=== PATIENT | male | born 1965 | race Two or more races ===

== ENCOUNTER 2022-12-04 14:44 | Emergency (ER) | payer MEDICAID, SELFPAY ==
--- NOTE | ~2022-12-04 | CT_ITS ---
EXAMINATION: CT ABDOMEN AND PELVIS WITH CONTRAST CLINICAL INFORMATION: Abdominal pain and distention. COMPARISON: None TECHNIQUE: Multidetector volumetric images were obtained from the superior aspect of the liver through the pubic symphysis following administration 85 mL of Omnipaque 350 intravenous contrast. Sagittal and coronal reformatted images were obtained on the technologist's workstation. Oral contrast: No This CT examination was performed using dose optimization techniques as appropriate, variously including the following: *Automated exposure control *Adjustment of mA and/or kV according to patient size (this includes techniques or standardized protocols for targeted exams where dose is matched to indication/reason for exam; i.e. extremities or head) *Use of iterative reconstruction technique DLP: 613 mGy-cm FINDINGS: LUNG BASES: The visualized lung bases are unremarkable. LIVER, GALLBLADDER, AND BILIARY TREE: The liver is normal in size, shape, and attenuation. No focal hepatic lesion or intrahepatic biliary ductal dilatation is present. CBD is slightly prominent measuring 8 mm. The gallbladder is unremarkable with no evidence of radiopaque gallstones, gallbladder wall thickening, or obvious pericholecystic inflammatory changes. PANCREAS: Unremarkable. SPLEEN: Unremarkable. ADRENAL GLANDS: Unremarkable. KIDNEYS AND URETERS: The kidneys are normal size, lobulated. No radiopaque renal calculi or hydronephrosis seen. There is a punctate radiopaque 2 mm calcification or calculi in upper pole left kidney. No hydroureteronephrosis seen. BLADDER: The bladder is mildly distended without any bladder wall thickening or radiopaque calculi.. GASTROINTESTINAL TRACT: There is diffuse scattered stool, diverticuli and gas seen throughout the colon without distention. The diverticulitis are most prominent in the sigmoid colon with mild mural thickening but no pericolic fat stranding seen Oral contrast opacified small bowel loops are normal caliber. Appendix is normal caliber. The stomach is nondistended. ABDOMINAL WALL: Small umbilical hernia containing fat is noted. LYMPH NODES: No abnormal pelvic or retroperitoneal lymph nodes seen. 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 The aneurysm measures 2.7 x 2.8 cm. Patent lumen measures 1.6 x 1.9 cm on axial image 33/3. PELVIC VISCERA: The prostate gland is mildly enlarged. Postsurgical changes are seen in the left groin from previous intervention.. OSSEOUS STRUCTURES: Aggressive lytic or sclerotic process seen. There is a hardware in the left proximal femur. CT/CT abdomen pelvis w IV con . IMPRESSION: Diffuse colonic diverticulosis most prominent in the sigmoid region with mild mural thickening but no pericolic fat stranding. No obstruction. Moderate constipation. Bilateral lobulated kidneys with 2 mm punctate radiopaque calculi/calcification in upper pole left kidney. No hydroureteronephrosis. Fleischner guidelines were followed.
--- NOTE | 2022-12-04 15:01 | ED_ITS ---
HPI - Abdominal Pain General Chief Complaint: Abdominal Pain Stated Complaint: abdominal, back pain Time Seen by Provider: 12/04/22 15:05 Related Data Previous Rx's Medication Instructions Recorded omeprazole 20 mg capsule,delayed 20 mg PO BID #60 caps 12/04/22 release Allergies Allergy/AdvReac Type Severity Reaction Status Date / Time No Known Allergies Allergy Verified 12/04/22 15:01 [facility] Social History Social History Advance Directives: No Advance Directives Information Provided: No Physical Exam ED Vital Signs: BMI result Body Mass Index 26.4 Course Course Course Narrative: RME 57yoM c PMHx of lymphoma, autoimmune pancreatitis, liver disease who is presenting to the ED c c/o diffuse abd pain radiating to back and lower left side. Denies any fevers, nausea/vomiting. Plan: Labs, UA, COVID/RSV/flu swab. Patient will be sent back to the emergency department for further evaluation treatment. Medical Decision Making Lab Data 12/04/22 16:07 12/04/22 16:07 Labs: Lab Results 12/04/22 12/04/22 12/04/22 Range/Units 16:07 16:07 16:07 WBC 7.8 (4.8-10.8) X10*3/uL RBC 5.21 (4.60-5.80) X10*6/uL Hgb 15.8 (14.0-18.0) g/dl Hct 46.3 (42.0-52.0) % MCV 88.9 (80.0-98.0) fL MCH 30.3 (27.0-33.0) pg MCHC 34.1 (31.0-36.0) g/dl RDW 13.1 (11.0-16.0) % Plt Count 170 (160-400) X10*3/uL MPV 9.2 L (9.4-12.4) fL Immature Gran % (Auto) 0.3 (0.0-0.4) % Neut % (Auto) 62.8 (45-73) % Lymph % (Auto) 22.8 (20-40) % Lanier % (Auto) 5.7 (2-11) % Eos % (Auto) 7.5 H (0-4) % Baso % (Auto) 0.9 (0-2) % Lymph # (Auto) 1.8 (1.2-4.9) X10*3/uL Lanier # (Auto) 0.5 (0.1-1.2) X10*3/uL Eos # (Auto) 0.6 H (0.0-0.4) X10*3/uL Baso # (Auto) 0.1 (0.0-0.2) X10*3/uL Abs Immat Gran (auto) 0.02 (0.00-0.03) X10*3/uL Absolute Neuts (auto) 4.9 (2.0-8.3) x10*3/uL Absolute Nucleated RBC 0.000 (0.0-0.012) X10*3/uL Nucleated RBC % (auto) 0.0 (0.0-0.2) /100WBC PT 11.0 (10.0-13.1) SEC INR 1.0 (0.9-1.1) Sodium 139 (135-145) mmol/L Potassium 3.7 (3.3-5.1) mmol/L Chloride 106 (96-108) mmol/L Carbon Dioxide 24 (22-29) mmol/L Anion Gap 13 (12-20) BUN 21 H (9-16) mg/dL Creatinine 1.38 (0.5-1.4) mg/dL Estim Creat Clear Calc 65.1 Estimated GFR 53 Random Glucose 207 H (60-115) mg/dL Calcium 9.6 (8.4-10.2) mg/dL Magnesium 1.7 (1.6-2.6) mg/dL Total Bilirubin 0.6 (0.0-1.0) mg/dL AST 20 (5-37) U/L ALT 23 (0-40) U/L Alkaline Phosphatase 133 H (39-117) U/L Ammonia (13-55) umol/L Total Protein 7.0 (6.5-8.0) g/dL Albumin 4.2 (3.5-5.0) g/dL Lipase 10 (8-78) U/L TSH (0.32-4.0) uIU/mL Ethyl Alcohol mg/dL Influenza Type A (PCR) (Negative) Influenza Type B (PCR) (Negative) RSV RNA Qual (PCR) (Negative) SARS-CoV-2 RNA (RT-PCR) (Negative) 12/04/22 12/04/22 12/04/22 Range/Units 16:07 16:07 16:07 WBC (4.8-10.8) X10*3/uL RBC (4.60-5.80) X10*6/uL Hgb (14.0-18.0) g/dl Hct (42.0-52.0) % MCV (80.0-98.0) fL MCH (27.0-33.0) pg MCHC (31.0-36.0) g/dl RDW (11.0-16.0) % Plt Count (160-400) X10*3/uL MPV (9.4-12.4) fL Immature Gran % (Auto) (0.0-0.4) % Neut % (Auto) (45-73) % Lymph % (Auto) (20-40) % Lanier % (Auto) (2-11) % Eos % (Auto) (0-4) % Baso % (Auto) (0-2) % Lymph # (Auto) (1.2-4.9) X10*3/uL Lanier # (Auto) (0.1-1.2) X10*3/uL Eos # (Auto) (0.0-0.4) X10*3/uL Baso # (Auto) (0.0-0.2) X10*3/uL Abs Immat Gran (auto) (0.00-0.03) X10*3/uL Absolute Neuts (auto) (2.0-8.3) x10*3/uL Absolute Nucleated RBC (0.0-0.012) X10*3/uL Nucleated RBC % (auto) (0.0-0.2) /100WBC PT (10.0-13.1) SEC INR (0.9-1.1) Sodium (135-145) mmol/L Potassium (3.3-5.1) mmol/L Chloride (96-108) mmol/L Carbon Dioxide (22-29) mmol/L Anion Gap (12-20) BUN (9-16) mg/dL Creatinine (0.5-1.4) mg/dL Estim Creat Clear Calc Estimated GFR Random Glucose (60-115) mg/dL Calcium (8.4-10.2) mg/dL Magnesium (1.6-2.6) mg/dL Total Bilirubin (0.0-1.0) mg/dL AST (5-37) U/L ALT (0-40) U/L Alkaline Phosphatase (39-117) U/L Ammonia 41 (13-55) umol/L Total Protein (6.5-8.0) g/dL Albumin (3.5-5.0) g/dL Lipase (8-78) U/L TSH (0.32-4.0) uIU/mL Ethyl Alcohol < 10 mg/dL Influenza Type A (PCR) NEGATIVE (Negative) Influenza Type B (PCR) NEGATIVE (Negative) RSV RNA Qual (PCR) NEGATIVE (Negative) SARS-CoV-2 RNA (RT-PCR) NEGATIVE (Negative) 12/04/22 Range/Units 16:07 WBC (4.8-10.8) X10*3/uL RBC (4.60-5.80) X10*6/uL Hgb (14.0-18.0) g/dl Hct (42.0-52.0) % MCV (80.0-98.0) fL MCH (27.0-33.0) pg MCHC (31.0-36.0) g/dl RDW (11.0-16.0) % Plt Count (160-400) X10*3/uL MPV (9.4-12.4) fL Immature Gran % (Auto) (0.0-0.4) % Neut % (Auto) (45-73) % Lymph % (Auto) (20-40) % Lanier % (Auto) (2-11) % Eos % (Auto) (0-4) % Baso % (Auto) (0-2) % Lymph # (Auto) (1.2-4.9) X10*3/uL Lanier # (Auto) (0.1-1.2) X10*3/uL Eos # (Auto) (0.0-0.4) X10*3/uL Baso # (Auto) (0.0-0.2) X10*3/uL Abs Immat Gran (auto) (0.00-0.03) X10*3/uL Absolute Neuts (auto) (2.0-8.3) x10*3/uL Absolute Nucleated RBC (0.0-0.012) X10*3/uL Nucleated RBC % (auto) (0.0-0.2) /100WBC PT (10.0-13.1) SEC INR (0.9-1.1) Sodium (135-145) mmol/L Potassium (3.3-5.1) mmol/L Chloride (96-108) mmol/L Carbon Dioxide (22-29) mmol/L Anion Gap (12-20) BUN (9-16) mg/dL Creatinine (0.5-1.4) mg/dL Estim Creat Clear Calc Estimated GFR Random Glucose (60-115) mg/dL Calcium (8.4-10.2) mg/dL Magnesium (1.6-2.6) mg/dL Total Bilirubin (0.0-1.0) mg/dL AST (5-37) U/L ALT (0-40) U/L Alkaline Phosphatase (39-117) U/L Ammonia (13-55) umol/L Total Protein (6.5-8.0) g/dL Albumin (3.5-5.0) g/dL Lipase (8-78) U/L TSH 0.87 (0.32-4.0) uIU/mL Ethyl Alcohol mg/dL Influenza Type A (PCR) (Negative) Influenza Type B (PCR) (Negative) RSV RNA Qual (PCR) (Negative) SARS-CoV-2 RNA (RT-PCR) (Negative) Medications Administered Discontinued Medications Generic Name Dose Route Start Last Admin Trade Name Freq PRN Reason Stop Dose Admin Diatrizoate Meglum/Diatrizoate Sod 30 ml 12/04/22 17:58 12/04/22 17:58 Diatrizoate Meglumine, Sodium 30 Ml Solution PO 12/04/22 17:59 30 ml ONCE ONE Administration Sodium Chloride 500 mls @ 500 mls/hr 12/04/22 15:30 12/04/22 17:29 Ns IV 12/04/22 16:29 Infused .Q1H CHIP Infusion Iohexol 100 ml 12/04/22 17:57 12/04/22 17:58 Iohexol 350 Mg/Ml 100 Ml Infus..Btl IV 12/04/22 17:58 85 ml ONCE ONE Administration Discharge Plan Discharge Clinical Impression: Gastritis Patient Disposition: Home, Self-Care Instructions: Gastritis (ED) Additional Instructions: Follow-up with your cost accounting analyst as scheduled Prescriptions: New omeprazole 20 mg capsule,delayed release(DR/EC) 20 mg PO BID Qty: 60 0RF Interventions: ED Discharge Assessment Last Done: 12/04/22 19:39 Discharge Date/Time: 12/04/22 19:40
[2022-12-04 15:02] VITALS: BP 127/72; PULSE 83; RESP 18; TEMP 36.5; O2SAT 100; BMI 26.4
--- NOTE | 2022-12-04 15:26 | ED.ABDPAIN ---
HPI - Abdominal Pain General Chief Complaint: Abdominal Pain Stated Complaint: abdominal, back pain Time Seen by Provider: 12/04/22 15:05 Source: patient Limitations: no limitations History of Present Illness HPI narrative: Chief complaint abdominal pain for 1 month. Patient states he has been having abdominal discomfort and bloating for the past 1 month, getting worse over the past 1 week. He has a history significant for autoimmune pancreatitis and hepatitis for which he used to have infusions twice a year at [facility] in [facility]. His last infusion was approximately 1 year ago. He states the workup at the time was negative so they stopped his infusions. He does not have a local PCP or specialist as he still does some work in [place] in follows up with his doctors there. This is the 1st time he has had symptoms like this since his initial diagnosis multiple years ago. No nausea or vomiting. He has had no diarrhea or constipation but does report a change in bowel movements and then now they are cream-colored for the past month. History of surgery on his kidneys for cysts. No other abdominal surgeries. His gallbladder is in as is his appendix. No recent fevers or chills. No respiratory symptoms. Related Data Previous Rx's Medication Instructions Recorded omeprazole 20 mg capsule,delayed 20 mg PO BID #60 caps 12/04/22 release Allergies Allergy/AdvReac Type Severity Reaction Status Date / Time No Known Allergies Allergy Verified 12/04/22 15:01 Review of Systems Comments: No fevers or chills Comments: No chest pain Comments: No cough or dyspnea Comments: Abdominal symptoms as described Comments: No urinary symptoms Comments: No change in skin color. No jaundice Comments: No focal weakness PMFSH Social History Social History Advance Directives: No Advance Directives Information Provided: No Physical Exam ED Vital Signs: Vital Signs - 24 hr 12/04/22 15:02 Temperature 97.7 F Pulse Rate 83 Respiratory Rate 18 Blood Pressure 127/72 Pulse Oximetry 100 Oxygen Delivery Method Room Air BMI result Body Mass Index 26.4 Const Other: Awake alert. No acute distress. Ambulatory without difficulty. Eyes Other: No scleral icterus Resp Other: Clear equal bilaterally without wheezes rales or rhonchi Cardio Other: Regular rate and rhythm without murmurs rubs or gallops GI Other: Soft. Tenderness epigastrium. No guarding no rebound. Distended diffusely. No obvious fluid with. Tympanitic bowel sounds. Skin Other: Warm pink and dry without jaundice Neuro Other: Ambulatory. No obvious focal neuro deficits Extrem Other: No obvious extremity injuries Medical Decision Making Medical Decision Making MDM Narrative: Patient with gradually progressive abdominal symptoms including distension and change in stool color. Specially in light of history of autoimmune pancreatic and hepatic involvement, the differential is quite extensive. Biliary obstruction is possible although he is not jaundiced. Pancreatitis Bowel obstruction Colitis Gastritis Peptic ulcer disease 19:19. Workup in the emergency department is reassuring. CBC and chemistries are normal. Transaminases and lipase are also normal. CT scan shows diverticulosis without evidence of diverticulitis or any other acute abnormality that would be causing the patient's symptoms. He is stable for discharge home with a final diagnosis of abdominal pain. Likely gastritis. Will treat with proton pump inhibitor. Lab Data 12/04/22 16:07 12/04/22 16:07 Labs: Lab Results 12/04/22 12/04/22 12/04/22 Range/Units 16:07 16:07 16:07 WBC 7.8 (4.8-10.8) X10*3/uL RBC 5.21 (4.60-5.80) X10*6/uL Hgb 15.8 (14.0-18.0) g/dl Hct 46.3 (42.0-52.0) % MCV 88.9 (80.0-98.0) fL MCH 30.3 (27.0-33.0) pg MCHC 34.1 (31.0-36.0) g/dl RDW 13.1 (11.0-16.0) % Plt Count 170 (160-400) X10*3/uL MPV 9.2 L (9.4-12.4) fL Immature Gran % (Auto) 0.3 (0.0-0.4) % Neut % (Auto) 62.8 (45-73) % Lymph % (Auto) 22.8 (20-40) % Coles % (Auto) 5.7 (2-11) % Eos % (Auto) 7.5 H (0-4) % Baso % (Auto) 0.9 (0-2) % Lymph # (Auto) 1.8 (1.2-4.9) X10*3/uL Coles # (Auto) 0.5 (0.1-1.2) X10*3/uL Eos # (Auto) 0.6 H (0.0-0.4) X10*3/uL Baso # (Auto) 0.1 (0.0-0.2) X10*3/uL Abs Immat Gran (auto) 0.02 (0.00-0.03) X10*3/uL Absolute Neuts (auto) 4.9 (2.0-8.3) x10*3/uL Absolute Nucleated RBC 0.000 (0.0-0.012) X10*3/uL Nucleated RBC % (auto) 0.0 (0.0-0.2) /100WBC PT 11.0 (10.0-13.1) SEC INR 1.0 (0.9-1.1) Sodium 139 (135-145) mmol/L Potassium 3.7 (3.3-5.1) mmol/L Chloride 106 (96-108) mmol/L Carbon Dioxide 24 (22-29) mmol/L Anion Gap 13 (12-20) BUN 21 H (9-16) mg/dL Creatinine 1.38 (0.5-1.4) mg/dL Estim Creat Clear Calc 65.1 Estimated GFR 53 Random Glucose 207 H (60-115) mg/dL Calcium 9.6 (8.4-10.2) mg/dL Magnesium 1.7 (1.6-2.6) mg/dL Total Bilirubin 0.6 (0.0-1.0) mg/dL AST 20 (5-37) U/L ALT 23 (0-40) U/L Alkaline Phosphatase 133 H (39-117) U/L Ammonia (13-55) umol/L Total Protein 7.0 (6.5-8.0) g/dL Albumin 4.2 (3.5-5.0) g/dL Lipase 10 (8-78) U/L TSH (0.32-4.0) uIU/mL Ethyl Alcohol mg/dL Influenza Type A (PCR) (Negative) Influenza Type B (PCR) (Negative) RSV RNA Qual (PCR) (Negative) SARS-CoV-2 RNA (RT-PCR) (Negative) 12/04/22 12/04/22 12/04/22 Range/Units 16:07 16:07 16:07 WBC (4.8-10.8) X10*3/uL RBC (4.60-5.80) X10*6/uL Hgb (14.0-18.0) g/dl Hct (42.0-52.0) % MCV (80.0-98.0) fL MCH (27.0-33.0) pg MCHC (31.0-36.0) g/dl RDW (11.0-16.0) % Plt Count (160-400) X10*3/uL MPV (9.4-12.4) fL Immature Gran % (Auto) (0.0-0.4) % Neut % (Auto) (45-73) % Lymph % (Auto) (20-40) % Coles % (Auto) (2-11) % Eos % (Auto) (0-4) % Baso % (Auto) (0-2) % Lymph # (Auto) (1.2-4.9) X10*3/uL Coles # (Auto) (0.1-1.2) X10*3/uL Eos # (Auto) (0.0-0.4) X10*3/uL Baso # (Auto) (0.0-0.2) X10*3/uL Abs Immat Gran (auto) (0.00-0.03) X10*3/uL Absolute Neuts (auto) (2.0-8.3) x10*3/uL Absolute Nucleated RBC (0.0-0.012) X10*3/uL Nucleated RBC % (auto) (0.0-0.2) /100WBC PT (10.0-13.1) SEC INR (0.9-1.1) Sodium (135-145) mmol/L Potassium (3.3-5.1) mmol/L Chloride (96-108) mmol/L Carbon Dioxide (22-29) mmol/L Anion Gap (12-20) BUN (9-16) mg/dL Creatinine (0.5-1.4) mg/dL Estim Creat Clear Calc Estimated GFR Random Glucose (60-115) mg/dL Calcium (8.4-10.2) mg/dL Magnesium (1.6-2.6) mg/dL Total Bilirubin (0.0-1.0) mg/dL AST (5-37) U/L ALT (0-40) U/L Alkaline Phosphatase (39-117) U/L Ammonia 41 (13-55) umol/L Total Protein (6.5-8.0) g/dL Albumin (3.5-5.0) g/dL Lipase (8-78) U/L TSH (0.32-4.0) uIU/mL Ethyl Alcohol < 10 mg/dL Influenza Type A (PCR) NEGATIVE (Negative) Influenza Type B (PCR) NEGATIVE (Negative) RSV RNA Qual (PCR) NEGATIVE (Negative) SARS-CoV-2 RNA (RT-PCR) NEGATIVE (Negative) 12/04/22 Range/Units 16:07 WBC (4.8-10.8) X10*3/uL RBC (4.60-5.80) X10*6/uL Hgb (14.0-18.0) g/dl Hct (42.0-52.0) % MCV (80.0-98.0) fL MCH (27.0-33.0) pg MCHC (31.0-36.0) g/dl RDW (11.0-16.0) % Plt Count (160-400) X10*3/uL MPV (9.4-12.4) fL Immature Gran % (Auto) (0.0-0.4) % Neut % (Auto) (45-73) % Lymph % (Auto) (20-40) % Coles % (Auto) (2-11) % Eos % (Auto) (0-4) % Baso % (Auto) (0-2) % Lymph # (Auto) (1.2-4.9) X10*3/uL Coles # (Auto) (0.1-1.2) X10*3/uL Eos # (Auto) (0.0-0.4) X10*3/uL Baso # (Auto) (0.0-0.2) X10*3/uL Abs Immat Gran (auto) (0.00-0.03) X10*3/uL Absolute Neuts (auto) (2.0-8.3) x10*3/uL Absolute Nucleated RBC (0.0-0.012) X10*3/uL Nucleated RBC % (auto) (0.0-0.2) /100WBC PT (10.0-13.1) SEC INR (0.9-1.1) Sodium (135-145) mmol/L Potassium (3.3-5.1) mmol/L Chloride (96-108) mmol/L Carbon Dioxide (22-29) mmol/L Anion Gap (12-20) BUN (9-16) mg/dL Creatinine (0.5-1.4) mg/dL Estim Creat Clear Calc Estimated GFR Random Glucose (60-115) mg/dL Calcium (8.4-10.2) mg/dL Magnesium (1.6-2.6) mg/dL Total Bilirubin (0.0-1.0) mg/dL AST (5-37) U/L ALT (0-40) U/L Alkaline Phosphatase (39-117) U/L Ammonia (13-55) umol/L Total Protein (6.5-8.0) g/dL Albumin (3.5-5.0) g/dL Lipase (8-78) U/L TSH 0.87 (0.32-4.0) uIU/mL Ethyl Alcohol mg/dL Influenza Type A (PCR) (Negative) Influenza Type B (PCR) (Negative) RSV RNA Qual (PCR) (Negative) SARS-CoV-2 RNA (RT-PCR) (Negative) Medications Administered Discontinued Medications Generic Name Dose Route Start Last Admin Trade Name Freq PRN Reason Stop Dose Admin Diatrizoate Meglum/Diatrizoate Sod 30 ml 12/04/22 17:58 12/04/22 17:58 Diatrizoate Meglumine, Sodium 30 Ml Solution PO 12/04/22 17:59 30 ml ONCE ONE Administration Sodium Chloride 500 mls @ 500 mls/hr 12/04/22 15:30 12/04/22 17:29 Ns IV 12/04/22 16:29 Infused .Q1H CHIP Infusion Iohexol 100 ml 12/04/22 17:57 12/04/22 17:58 Iohexol 350 Mg/Ml 100 Ml Infus..Btl IV 12/04/22 17:58 85 ml ONCE ONE Administration Discharge Plan Discharge Clinical Impression: Gastritis Patient Disposition: Home, Self-Care Instructions: Gastritis (ED) Additional Instructions: Follow-up with your antisqueak chalker as scheduled Prescriptions: New omeprazole 20 mg capsule,delayed release(DR/EC) 20 mg PO BID Qty: 60 0RF
[2022-12-04 16:19] LABS: MANUAL DIFF FLAG NO
[2022-12-04 16:21] LABS: Basophils Absolute Auto 0.1 X10*3/uL (0.0-0.2); Basophils Percent Auto 0.9 % (0-2); Eosinophils Absolute Auto 0.6 X10*3/uL (0.0-0.4); Eosinophils Percent Auto 7.5 % (0-4); Hematocrit 46.3 % (42.0-52.0); Hemoglobin 15.8 g/dl (14.0-18.0); Imm Gran Abs Auto 0.02 X10*3/uL (0.00-0.03); Imm Gran Pct Auto 0.3 % (0.0-0.4); Lymphocytes Absolute Auto 1.8 X10*3/uL (1.2-4.9); Lymphocytes Percent Auto 22.8 % (20-40); Mean Corpuscular HGB Conc 34.1 g/dl (31.0-36.0); Mean Corpuscular Hemoglobin 30.3 pg (27.0-33.0); Mean Corpuscular Volume 88.9 fL (80.0-98.0); Mean Platelet Volume 9.2 fL (9.4-12.4); Monocytes Absolute Auto 0.5 X10*3/uL (0.1-1.2); Monocytes Percent Auto 5.7 % (2-11); Neutrophils Absolute Auto 4.9 x10*3/uL (2.0-8.3); Neutrophils Percent Auto 62.8 % (45-73); Platelet Count 170 X10*3/uL (160-400); Red Blood Count 5.21 X10*6/uL (4.60-5.80); Red Cell Distribution Width 13.1 % (11.0-16.0); White Blood Count 7.8 X10*3/uL (4.8-10.8)
[2022-12-04 16:28] LABS: Ammonia 41 umol/L (13-55)
[2022-12-04] MEDS: 0.9 % Sodium Chloride 500 ML IV (16:29)
[2022-12-04 16:34] LABS: Ethanol < 10 mg/dL
[2022-12-04 16:36] LABS: Alanine Aminotransferase 23 U/L (0-40); Albumin Level 4.2 g/dL (3.5-5.0); Alkaline Phosphatase 133 U/L (39-117); Anion Gap 13 (12-20); Aspartate Amino Transferase 20 U/L (5-37); Bilirubin Total 0.6 mg/dL (0.0-1.0); Blood Urea Nitrogen 21 mg/dL (9-16); Calcium 9.6 mg/dL (8.4-10.2); Carbon Dioxide 24 mmol/L (22-29); Chloride 106 mmol/L (96-108); Creatinine Clr Calc Pharmacy 65.1; Estimated Glomerular Filt Rate 53; Glucose Random 207 mg/dL (60-115); Lipase 10 U/L (8-78); Magnesium 1.7 mg/dL (1.6-2.6); Potassium 3.7 mmol/L (3.3-5.1); Sodium 139 mmol/L (135-145)
[2022-12-04 16:57] LABS: TSH reflex Free T4 0.87 uIU/mL (0.32-4.0)
[2022-12-04 16:58] LABS: Influenza A PCR NEGATIVE (Negative); Influenza B PCR NEGATIVE (Negative); Resp Syncy Virus RNA Qual PCR NEGATIVE (Negative); SARS COV2 PCR INHOUSE NEGATIVE (Negative)
[2022-12-04] MEDS: iohexoL 350 MG/ML 100 ML INFUS..BTL IV (17:58)
[2022-12-04] MEDS: Diatrizoate Meglumine, Sodium 30 ML SOLUTION PO (17:58)
== END 2022-12-04 19:40 | disposition home or self-care (01) ==
PROVIDERS: Physician Assistant Medical; Emergency Provider Emergency Medicine
DX: K29.70 Gastritis, unspecified, without bleeding (principal); R10.9 Unspecified abdominal pain; Z20.822 Contact with and (suspected) exposure to COVID-19; Z20.828 Contact with and (suspected) exposure to other viral communicable diseases
CPT/HCPCS: 0241U; 36415; 74177; 80053; 82077; 82140; 83690; 83735; 84443; 85025; 85610; 96360; 99283; 99284; Q9967

== ENCOUNTER 2023-01-03 14:41 | Outpatient (REF) | payer MEDICAID, SELFPAY ==
[2023-01-03 15:36] LABS: COVID-19 Test Negative (Negative); IDNOW Serial# 9DB6401D
== END 2023-01-03 14:42 | disposition home or self-care (01) ==
LOC: HO.LAB 14:41
PROVIDERS: Visit Provider Internal Medicine
DX: Z20.822 Contact with and (suspected) exposure to COVID-19 (principal)
CPT/HCPCS: 87635; C9803

== ENCOUNTER 2023-08-06 17:54 | Emergency (ER) | payer MEDICAID, SELFPAY ==
[2023-08-06 18:11] VITALS: BP 130/73; PULSE 66; RESP 18; TEMP 37.1; O2SAT 99; BMI 26.4
--- NOTE | 2023-08-06 18:11 | ED.EYEPROB ---
HPI - Eye Problem General Chief complaint: Eye Problems Stated complaint: right eye swollen Time Seen by Provider: 08/06/23 19:11 Source: patient Mode of arrival: ambulatory Limitations: no limitations History of Present Illness HPI Narrative: 58 year old male with no significant PMHx presents to the ED today with right eye pain after cutting plywood with a saw 2 hours ago. Admits to wearing protective eye gear and believes a piece of wood flew into his right eye. He has attempted to remove the piece of wood with eye wash and a cotton swab however still reports discomfort and FB sensation. Denies vision changes, discharge, tearing, bleeding, or headache. Related Data Previous Rx's Medication Instructions Recorded omeprazole 20 mg capsule,delayed 20 mg PO BID #60 caps 12/04/22 release erythromycin 5 mg/gram (0.5 %) eye 1 appl ophthalmic (eye) QID 7 days 08/06/23 ointment #3.5 grams Allergies Allergy/AdvReac Type Severity Reaction Status Date / Time No Known Allergies Allergy Verified 08/06/23 18:11 Review of Systems Review of Systems: Constitutional: No fever, chills, fatigue, night sweats, weight changes ENT/Mouth: No ear pain, hearing loss, nasal congestion, sinus pain, rhinorrhea, sore throat Eyes: + eye pain, + redness, No swelling, vision changes, discharge Cardio: No chest pain, palpitations, JOVEL, orthopnea, peripheral edema Pulm: No SOB, cough, sputum, wheezing, dyspnea, hemoptysis GI: No nausea, vomiting, hematemesis, abdominal pain, diarrhea, constipation, hematochezia, melena : No irregular bleeding, dysuria, frequency, urgency, hesitancy, hematuria, flank pain, urinary flow changes, urinary incontinence or retention MSK: No back pain, neck pain, joint pain, myalgias Skin: No lesions, rashes Neuro: No weakness, numbness, paresthesias, LOC, dizziness, headache All other systems reviewed and are negative. [facility] Past Medical History Attestation statement: The following information was validated with the patient. Source: old records reviewed and nursing notes reviewed Social History Social History Advance Directives: No Advance Directives Information Provided: No Physical Exam Vital Signs: Vital Signs: Last Vital Signs Temp 98.8 F 08/06/23 18:11 Pulse 66 08/06/23 18:11 Resp 18 08/06/23 18:11 BP 130/73 08/06/23 18:11 Pulse Ox 99 08/06/23 18:11 O2 Del Method Room Air 08/06/23 18:11 BMI result Body Mass Index 26.4 VSS General: Nontoxic appearing. NAD Skin: Warm and dry. No rashes or lesions. Head: Normocephalic, atraumatic. EENT: PERRLA. Right eye with injected conjunctiva, no visible FB, abrasion, or rust ring. EOMs intact b/l without intrapment. Moist mucous membranes. Pharynx normal. Neck: Supple without LAD. Normal ROM. Trachea midline.? Cardiac: RRR. S1 and S1 appreciated. Lungs: CTA b/l. No rales, rhonchi, or wheezes. Normal respiratory effort without accessory muscle use. Abdomen: No visible lesions or scars. Soft, NT/ND. Ext: Upper and lower extremities atraumatic. Full ROM throughout. Capillary refill <2 sec throughout. Pulses 2+ throughout. No edema, cyanosis, or clubbing. Neuro: Alert and oriented x3. Normal speech. CN 2-12 grossly intact. Ambulating with steady gait. Psych: Appropriate mood and affect. Responds appropriately to questions. Course Course Course Narrative: Tetracaine, fluorescein stain, and cotton swab used to evaluate right eye >> no visible fb, rust ring, or stain uptake indicating corneal abrasion noted to the right eye under faith lmap. Eyelid eversion performed >> small sawdust particle removed from the medial aspect of the superior inner eyelid with cotton swab. Will send patient home with rx for erythromicin ointment >> advised to apply to the affected eye 4 times daily to prevent infection. Educated patient on return precautions. All questions answered. Patient stable for d/c. Medications Administered Discontinued Medications Generic Name Dose Route Start Last Admin Trade Name Freq PRN Reason Stop Dose Admin Fluorescein Sodium 1 strip 08/06/23 18:12 08/06/23 19:09 Fluorescein Sodium Strip EYE-RIGHT 08/06/23 18:13 1 strip ONCE ONE Administration Tetracaine HCl 3 drop 08/06/23 18:12 08/06/23 19:09 Tetracaine Hcl/Pf 0.5% Oph Adry 4 Ml Drops EYE-RIGHT 08/06/23 18:13 3 drop ONCE ONE Administration Medical Decision Making Medical Decision Making MDM Narrative: 58 year old male with no significant PMHx presents to the ED today with right eye pain after cutting plywood with a saw 2 hours ago. VSS. Nontoxic appearing, in NAD. Right eye with injected conjunctiva, no visible FB, abrasion, or rust ring. EOMs intact b/l without intrapment. Moist mucous membranes. Pharynx normal. Clinical concern for eye FB vs corneal abraision. Presentation not consistent with acute angle closure glaucoma, globe rupture, orbital or preorbital cellulitis. Plan: evaluation with tetracaine, fluorescein stain and faith lamp. Differential Diagnosis Differential Diagnoses: The differential diagnosis associated with the presentation includes As above. Admission/Observation Not indicated. Tests considered The following testing was considered but not selected: I considered ordering CT orbital bones however patient without vision changes and EOM's intact b/l without intrapment > no concern for globe rupture. I considered ordering tonopen evaluation however history/ presentation not consistent with acute angle closure glaucoma + FB identified on physical exam. Prescription Management I considered prescription management with: Pain Medication and Antibiotic Procedures FB Removal Eye Time Out performed: Yes Location: eye (R) Topical anesthetic used: tetracaine Foreign body: wood Evidence of corneal penetration: No Technique: cotton tip swab Procedure performed under: direct visualization with magnification Post-procedure medication: ophthalmic antibiotic and topical anesthetic Patient tolerated procedure: well Critical Care Time Critical Care Time Critical Care Time: No Discharge Plan Discharge Clinical Impression: Corneal abrasion Patient Disposition: Home, Self-Care Instructions: Corneal Abrasion (ED) Additional Instructions: Erythromycin is an antibiotic ointment. This has been sent to your pharmacy. Apply this to your eye 4 times a day to prevent infection. Return to the ED if symptoms persist or worsen. Follow up with PCP. A referral to an eye doctor has been provided to you. Call to make an apopointment. Prescriptions: New erythromycin 5 mg/gram (0.5 %) ointment 1 appl ophthalmic (eye) QID 7 Days Qty: 3.5 0RF No Action omeprazole 20 mg capsule,delayed release(DR/EC) 20 mg PO BID Qty: 60 0RF Referrals: Fernando Younger [Physician] - Physician,Unknown J [Primary Care Provider] - Interventions: ED Discharge Assessment Last Done: 08/06/23 19:37 Discharge Date/Time: 08/06/23 19:37
[2023-08-06] MEDS: Fluorescein Sodium STRIP 1 STRIP EYE-RIGHT (19:09)
[2023-08-06] MEDS: Tetracaine HCl/PF 0.5% Oph Sol 4 ML DROPS 3 DROP EYE-RIGHT (19:09)
== END 2023-08-06 19:37 | disposition home or self-care (01) ==
PROVIDERS: Emergency Provider Internal Medicine
DX: S00.251A Superficial foreign body of right eyelid and periocular area, initial encounter (principal); H57.11 Ocular pain, right eye; T15.01XA Foreign body in cornea, right eye, initial encounter; X58.XXXA Exposure to other specified factors, initial encounter; Y93.9 Activity, unspecified; Y92.9 Unspecified place or not applicable; Y99.9 Unspecified external cause status
CPT/HCPCS: 65220; 99282; 99284

== ENCOUNTER 2023-10-28 17:34 | Inpatient (IN) | payer OTHER, SELFPAY ==
--- NOTE | ~2023-10-28 | XR_ITS ---
EXAMINATION: XR CHEST CLINICAL INFORMATION: Chest pain COMPARISON: None available. TECHNIQUE: Frontal view of the chest was obtained. FINDINGS: No significant abnormality is noted involving the heart, lungs, mediastinum, bony thorax or soft tissues. XR/XR chest 1V IMPRESSION: Unremarkable examination.
--- NOTE | 2023-10-28 17:38 | ECG_ITS ---
Test Reason : CHEST PAIN Blood Pressure : / mmHG Vent. Rate : 065 BPM Atrial Rate : 065 BPM P-R Int : 156 ms QRS Dur : 104 ms QT Int : 386 ms P-R-T Axes : 055 011 050 degrees QTc Int : 401 ms Normal sinus rhythm Normal ECG No previous ECGs available Referred By: Generic ED Physician Electronically Signed By:GRANT BO MD
[2023-10-28 17:51] VITALS: BP 130/87; PULSE 85; O2SAT 98; BMI 26.0
--- NOTE | 2023-10-28 18:00 | PC.NURSE ---
a&ox4, vss and up to date. pt comes in today d/t left sided chest pain. pt states cp radiates to center of chest/into throat. pt also verbalizing numbness/tingling in LUE. sx started 1 hr ago when he was driving. denies any other sx. no sob/wob noted. respirations even/unlabored.
[2023-10-28 18:11] LABS: MANUAL DIFF FLAG NO
--- NOTE | 2023-10-28 18:13 | ED_ITS ---
HPI - Chest Pain General Chief Complaint: Chest Pain Stated Complaint: sudden onset of chest pain 8/10, SOB Time Seen by Provider: 10/28/23 18:02 Source: patient Mode of arrival: EMS Limitations: no limitations History of Present Illness HPI narrative: Patient comes to the emergency room complaining of chest pain. Patient states that 3 days ago, patient had nausea vomiting diarrhea, abdominal discomfort, self-resolved. Today, patient states that approximately 5 hours ago, patient started having sudden onset chest pain and left arm tingling. Patient was given full-dose aspirin by EMS, patient had 2 rounds of nitroglycerin. Patient states that the pain was initially 8/10, after the 2nd dose of nitroglycerin, the pain started to decrease. At this time, patient states that he feels fairly comfortable, no significant chest pain but still his left arm is tingling Related Data Previous Rx's Medication Instructions Recorded omeprazole 20 mg capsule,delayed 20 mg PO BID #60 caps 12/04/22 release erythromycin 5 mg/gram (0.5 %) eye 1 appl ophthalmic (eye) QID 7 days 08/06/23 ointment #3.5 grams Allergies Allergy/AdvReac Type Severity Reaction Status Date / Time No Known Allergies Allergy Verified 10/28/23 17:51 Review of Systems 2 Review of Systems: Constitutional : No Weight loss, No Fever, No Chills, No Night Sweats, No Fatigue, No Malaise ENT/Mouth : No Hearing loss, No Ear Pain, No Nasal Congestion, No Sinus Pain, No Hoarseness, No sore throat, No Rhinorrhea, No Swallowing Difficulty Eyes: No Eye Pain, No Swelling, No Redness, No Foreign Body, No Discharge, No Vision Changes Cardiovascular : Complaining of chest pain on the left radiating towards the left arm with numbness tingling, pain improved after 2nd dose of nitroglycerin and full-dose aspirin No SOB, No Dyspnea on Exertion, No Orthopnea, No Edema, No Palpitations Respiratory : No Cough, No Sputum, No Wheezing, No Smoke Exposure, No Dyspnea Gastrointestinal : No Nausea, No Vomiting, No Diarrhea, No Constipation, No abdominal Pain, No Hematochezia, No Melena Genitourinary : no irregular bleeding, No Dysuria, No Urinary Frequency, No Hematuria, No Urinary Incontinence, No Urgency, No Flank Pain, No Urinary Flow Changes, No Hesitancy Musculoskeletal : No joint pain, No Myalgias, No Joint Swelling Skin : No Skin Lesions, No rash Neuro : No Weakness, No Numbness, No Paresthesias, No Loss of Consciousness, No Dizziness, No Headache Psych : No Anxiety/Panic, No Depression, No SI/HI/AH/VH, No Social Issues, Heme/Lymph: No Bruising, No Bleeding,No Lymphadenopathy Endocrine : No Polyuria, No Polydipsia, No Temperature Intolerance [facility] Past Medical History Medical History (Updated 10/28/23 @ 21:38 by Radhika Bowden MD) IgG deficiency Hypertension Asthma Autoimmune hepatitis Social History Social History Smoked in Last 30 Days: Yes Use of substances other than those prescribed or required for medical reasons: No Advance Directives: No Advance Directives Information Provided: No Physical Exam 2 Vital Signs: Vital Signs: Last Vital Signs Temp 97.9 F 10/28/23 19:09 Pulse 60 10/28/23 19:09 Resp 19 10/28/23 19:09 BP 127/80 10/28/23 19:09 Pulse Ox 98 10/28/23 19:09 O2 Del Method Room Air 10/28/23 19:09 BMI result Body Mass Index 26.0 Const: Other: Appearance: Alert. Oriented X3. No acute distress. Eyes: Pupils equal, round and reactive to light. ENT: Pharynx normal. Neck: Normal inspection. Neck supple. No lymph nodes noted. No crepitus CVS: Normal heart rate and rhythm. Pulses normal. Normal S1 and S2 Respiratory: No respiratory distress. Breath sounds normal. No Wheezing. No rales Abdomen: Soft and nontender. No rigidity. No distention. Skin: Skin warm and dry. Normal skin color. Normal skin turgor. Extremities: No lower extremity edema. No Lacerations. No Rash Neuro: Oriented X 3. No motor deficit. No sensory deficit. Moving all extremities. No slurred speech. CN 2 through 12 grossly intact Psych: calm, cooperative, normal affect Course Course Course Narrative: - Medications Administered Discontinued Medications Generic Name Dose Route Start Last Admin Trade Name Freq PRN Reason Stop Dose Admin Acetaminophen 975 mg 10/28/23 19:09 10/28/23 19:19 Acetaminophen 325 Mg Tablet PO 10/28/23 19:10 975 mg ONCE ONE Administration Medical Decision Making Medical Decision Making [facility] Narrative: -my interpretation of EKG: Normal rate 65, the segment depression or elevation, no T-wave inversion, QTC 401, incomplete right bundle branch block -my interpretation of labs: Hematology within normal limits, chemistry does not show any significant acute abnormality, 1st troponin drawn at 18:05, hemolyzed, 1st actual troponin available 19:50, troponin elevated at 180.6. -patient has been symptomatic for 6 hours with relief after nitroglycerin. However, still having minimal chest pain and left arm tingling. I discussed the patient and the labs and EKGs with Dr. Danielle. We will apply nitroglycerin paste and start heparin. Second troponin 2 at 22:50 -my interpretation of EKG 2: Sinus bradycardia, heart rate 54, no ST segment depression or elevation, no T-wave inversion, QTC 392, incomplete right bundle branch block Differential Diagnosis Differential Diagnoses: The differential diagnosis associated with the presentation includes (STEMI, NSTEMI, ACS, unstable angina, musculoskeletal pain, costochondritis, anxiety) Admission/Observation Consideration of admission/observation: Escalation of care including admission/observation considered Consult Healthcare Provider Management of the patient was discussed with: Hospitalist and Water Conservationist Lab Data MDM Lab Attestation statement: I reviewed the patient's lab results. 10/28/23 18:05 10/28/23 19:50 Labs: Lab Results 10/28/23 10/28/23 Range/Units 18:05 19:50 WBC 8.8 (4.8-10.8) X10*3/uL RBC 4.87 (4.60-5.80) X10*6/uL Hgb 14.7 (14.0-18.0) g/dl Hct 44.2 (42.0-52.0) % MCV 90.8 (80.0-98.0) fL MCH 30.2 (27.0-33.0) pg MCHC 33.3 (31.0-36.0) g/dl RDW 13.2 (11.0-16.0) % Plt Count 170 (160-400) X10*3/uL MPV 9.5 (9.4-12.4) fL Immature Gran % (Auto) 0.2 (0.0-0.4) % Neut % (Auto) 72.9 (45-73) % Lymph % (Auto) 14.7 L (20-40) % [place] % (Auto) 8.6 (2-11) % Eos % (Auto) 3.0 (0-4) % Baso % (Auto) 0.6 (0-2) % Lymph # (Auto) 1.3 (1.2-4.9) X10*3/uL [place] # (Auto) 0.8 (0.1-1.2) X10*3/uL Eos # (Auto) 0.3 (0.0-0.4) X10*3/uL Baso # (Auto) 0.1 (0.0-0.2) X10*3/uL Abs Immat Gran (auto) 0.02 (0.00-0.03) X10*3/uL Absolute Neuts (auto) 6.4 (2.0-8.3) x10*3/uL Absolute Nucleated RBC 0.000 (0.0-0.012) X10*3/uL Nucleated RBC % (auto) 0.0 (0.0-0.2) /100WBC Sodium 142 (135-145) mmol/L Potassium 4.0 (3.3-5.1) mmol/L Chloride 109 H (96-108) mmol/L Carbon Dioxide 24 (22-29) mmol/L Anion Gap 13 (12-20) BUN 19 H (9-16) mg/dL Creatinine 1.15 (0.5-1.4) mg/dL Estim Creat Clear Calc 77.1 Estimated GFR > 60 Random Glucose 127 H (60-115) mg/dL Calcium 9.1 (8.4-10.2) mg/dL Troponin I High Sens 180.6 H* (<3.5-35.0) ng/L Independent Interpretation I performed an independent interpretation of an: EKG (As above) and Plain X-Ray (Chest x-ray: My interpretation unremarkable, no infiltrates) Radiology Impression Discussion of test interpretation with radiology: I have reviewed the radiologist's reading. Radiologist Impression: FINDINGS: No significant abnormality is noted involving the heart, lungs, mediastinum, bony thorax or soft tissues. XR/XR chest 1V IMPRESSION: Unremarkable examination. Independent Historian Clinical information obtained from an independent historian. History obtained from or confirmed by: Other (Daughter) Critical Care Time Critical Care Time Critical Care Time: Yes Total Critical Care Time: 75 Attestation: I have personally provided critical care time. Time includes review of lab data, radiology results, discussion with consultants, and monitoring for potential decompensation. Intervention performed as documented. Discharge Plan Discharge Clinical Impression: Elevated troponin, Chest pain Patient Disposition: Admitted As Inpatient Prescriptions: No Action omeprazole 20 mg capsule,delayed release(DR/EC) 20 mg PO BID Qty: 60 0RF erythromycin 5 mg/gram (0.5 %) ointment 1 appl ophthalmic (eye) QID 7 Days Qty: 3.5 0RF
[2023-10-28 18:14] LABS: Basophils Absolute Auto 0.1 X10*3/uL (0.0-0.2); Basophils Percent Auto 0.6 % (0-2); Eosinophils Absolute Auto 0.3 X10*3/uL (0.0-0.4); Hematocrit 44.2 % (42.0-52.0); Hemoglobin 14.7 g/dl (14.0-18.0); Imm Gran Abs Auto 0.02 X10*3/uL (0.00-0.03); Imm Gran Pct Auto 0.2 % (0.0-0.4); Lymphocytes Absolute Auto 1.3 X10*3/uL (1.2-4.9); Lymphocytes Percent Auto 14.7 % (20-40); Mean Corpuscular HGB Conc 33.3 g/dl (31.0-36.0); Mean Corpuscular Hemoglobin 30.2 pg (27.0-33.0); Mean Corpuscular Volume 90.8 fL (80.0-98.0); Mean Platelet Volume 9.5 fL (9.4-12.4); Monocytes Absolute Auto 0.8 X10*3/uL (0.1-1.2); Monocytes Percent Auto 8.6 % (2-11); Neutrophils Absolute Auto 6.4 x10*3/uL (2.0-8.3); Neutrophils Percent Auto 72.9 % (45-73); Platelet Count 170 X10*3/uL (160-400); Red Blood Count 4.87 X10*6/uL (4.60-5.80); Red Cell Distribution Width 13.2 % (11.0-16.0); White Blood Count 8.8 X10*3/uL (4.8-10.8)
[2023-10-28 19:02] VITALS: BP 136/75; PULSE 55; RESP 18; TEMP 36.7; O2SAT 99
[2023-10-28 19:09] VITALS: BP 127/80; PULSE 60; RESP 19; TEMP 36.6; O2SAT 98
[2023-10-28] MEDS: Acetaminophen 325 MG TABLET 975 MG PO (19:19)
--- NOTE | 2023-10-28 19:20 | PC.NURSE ---
medication administered per provider order. pt rating headache at 5/10 at this time - will reassess pain level. pt still verbalizing numbness/tingling in LE at this time. pt resting in no apparent distress. respirations remain even/unlabored. family bedside. call ruiz placed within reach.
--- NOTE | 2023-10-28 20:31 | PC.NURSE ---
pt stating pain level decreased post medication administration. pt awaiting disposition from provider at this time.
[2023-10-28 20:36] LABS: Anion Gap 13 (12-20); Blood Urea Nitrogen 19 mg/dL (9-16); Calcium 9.1 mg/dL (8.4-10.2); Carbon Dioxide 24 mmol/L (22-29); Chloride 109 mmol/L (96-108); Creatinine Clr Calc Pharmacy 77.1; Estimated Glomerular Filt Rate > 60; Glucose Random 127 mg/dL (60-115); Sodium 142 mmol/L (135-145)
[2023-10-28 20:46] LABS: Troponin-I High Sensitivity 180.6 ng/L (<3.5-35.0)
--- NOTE | 2023-10-28 21:04 | ECG_ITS ---
Test Reason : CHESTPAIN Blood Pressure : / mmHG Vent. Rate : 054 BPM Atrial Rate : 054 BPM P-R Int : 154 ms QRS Dur : 102 ms QT Int : 414 ms P-R-T Axes : 060 000 050 degrees QTc Int : 392 ms Sinus bradycardia Incomplete right bundle branch block Borderline ECG When compared with ECG of 28-OCT-2023 17:45, No significant change was found Referred By: Radhika Bowden Electronically Signed By:GRANT BO MD
--- NOTE | 2023-10-28 21:37 | PM.IMHP ---
History of Present Illness Date of Service: 10/28/23 Chief Complaint: Chest Pain This is a 58-year-old male with pertinent history of IgG deficiency, autoimmune hepatitis, asthma, [id number] diabetes mellitus, tobacco use disorder not on home oxygen who presents to the emergency department for evaluation of chest pain. Patient states he had sudden onset of substernal chest pain that started around 14:00 when he was driving. It continued and did not relieve with rest and hence he called EMS. No history of similar complaints in the past. No history of NE. His brother had an NE at the age of 50. The pain radiated to the shoulders and left arm. Also had associated sweating and dizziness. Patient states the pain slightly subsided with the 2nd dose of nitro by EMS. Had an episode of nausea/vomiting/abdominal discomfort and diarrhea about 3 days prior to presentation with self resolved. Patient admits to smoking about half a pack of cigarettes per day. No fever, chills, shortness of breath, abdominal pain, changes in urinary or bowel habits. In the emergency department, troponin was found to be elevated and Cardiology was consulted. Review of Systems Constitutional: Constitutional: Reports no additional constitutional complaints Cardiovascular: Cardiovascular: Reports chest pain and Reports chest pain at rest Respiratory: Respiratory: Reports no additional respiratory complaints Gastrointestinal: Gastrointestinal: Reports no additional gastrointestinal complaints Genitourinary: Genitourinary: Reports no additional male genitourinary complaints [facility] Medical History IgG deficiency Hypertension Asthma Autoimmune hepatitis Pertinent family history: No family history of early CAD Social History Patient Tobacco Use Status: Current everyday Tobacco user Smoked in Last 30 Days: Yes Use of substances other than those prescribed or required for medical reasons: No Advance Directives: No Advance Directives Information Provided: No Nutrition Risks: No Nutritional Risk Meds Allergies Allergy/AdvReac Type Severity Reaction Status Date / Time No Known Allergies Allergy Verified 10/28/23 17:51 Active Medications: Current Medications Heparin Sodium (Porcine) (Heparin Sodium,Porcine 5,000 Unit/Ml Vial) 3,600 unit 40 unit/kg (3600 unit) IVPUSH PROTOCOL BOLUS PRN; Protocol PRN Reason: 40 unit/kg - Heparin Protocol Heparin Sodium (Porcine) (Heparin Sodium,Porcine 5,000 Unit/Ml Vial) 7,100 unit 80 unit/kg (7100 unit) IVPUSH PROTOCOL BOLUS PRN; Protocol PRN Reason: 80 unit/kg - Heparin Protocol Heparin Sodium/Sodium Chloride (Heparin Sodium,Porcine/1/2ns) 25,000 unit in 250 mls @ 0 mls/hr IVCONT .Q0M CHIP; Protocol Physical Exam Vital Signs and Narrative: Vital Signs: Last Vital Signs Temp 97.9 F 10/28/23 19:09 Pulse 60 10/28/23 19:09 Resp 19 10/28/23 19:09 BP 127/80 10/28/23 19:09 Pulse Ox 98 10/28/23 19:09 O2 Del Method Room Air 10/28/23 19:09 BMI result Body Mass Index 26.0 Middle-aged male lying in bed in no distress Neck supple, no JVD Regular rate and rhythm, S1-S2 heard Regular breath sounds bilaterally, no wheezing or crackles appreciated Abdomen soft nontender, no guarding, no rigidity Patient is awake, alert and oriented to self, place, time and person ; no focal motor deficit Psych: Normal mood No pedal edema Results Labs 10/28/23 18:05 10/28/23 19:50 Labs: Laboratory Results - last 24 hr 10/28/23 10/28/23 18:05 19:50 MCV 90.8 MCH 30.2 MCHC 33.3 RDW 13.2 Plt Count 170 MPV 9.5 Immature Gran % (Auto) 0.2 Neut % (Auto) 72.9 Lymph % (Auto) 14.7 L [place] % (Auto) 8.6 Eos % (Auto) 3.0 Baso % (Auto) 0.6 Lymph # (Auto) 1.3 [place] # (Auto) 0.8 Eos # (Auto) 0.3 Baso # (Auto) 0.1 Abs Immat Gran (auto) 0.02 Absolute Neuts (auto) 6.4 Absolute Nucleated RBC 0.000 Nucleated RBC % (auto) 0.0 Anion Gap 13 Estim Creat Clear Calc 77.1 Estimated GFR > 60 Random Glucose 127 H Calcium 9.1 Imaging Radiologist's Impressions: Impressions Chest X-Ray 10/28/23 18:23 IMPRESSION: Unremarkable examination. Assessment and Plan (1) Non-ST elevation NE (NSTEMI): Status: Acute Plan This is a 58-year-old male with pertinent history of IgG deficiency, autoimmune hepatitis, asthma not on home oxygen who presents to the emergency department for evaluation of chest pain. #. NSTEMI: Will admit patient with cardiac monitoring. Initiated on IV heparin in the ER. Patient received full-dose aspirin by EMS. Initiating antiplatelet agent and high-intensity statin. Obtaining echo and consulted Cardiology, appreciate assistance #. Ejb-hpqqkzi-ngkygneuf diabetes mellitus: Hold home metformin. Initiating Accu-Cheks with sliding scale insulin. Obtaining A1c #. Autoimmune hepatitis: Was previously on prednisone but it was discontinued by his physician as per the patient #. IgG deficiency: Outpatient follow-up. Has periodic infusions #. Tobacco use disorder: Counseled regarding cessation. Refused nicotine patch DVT prophylaxis: Heparin Full code Admit as inpatient and will require two night minimum hospital stay for IV heparin (as above), which is not possible in a lesser acute setting. Specialist consult pending. Quality Stroke Does the patient have a stroke diagnosis?: No VTE Prior VTE?: No VTE Risk Level:: Medical - moderate - high VTE Device Contraindication: Treatment Not Indicated VTE Drug Contraindication: N/A - Med Ordered
[2023-10-28 21:43] LABS: B Type Natriuretic Peptide < 10 pg/mL (<100)
[2023-10-28 21:54] LABS: Prothrombin Time 11.7 SEC (11.1-13.3)
[2023-10-28 22:16] LABS: Troponin-I High Sensitivity 662.9 ng/L (<3.5-35.0)
[2023-10-28] MEDS: Nitroglycerin 2 % Oint 1 GM Packet 0.5 INCH TRANSDERMA (22:38)
[2023-10-28 22:42] VITALS: BP 143/71; PULSE 50; RESP 12; TEMP 36.6; O2SAT 100
[2023-10-28 22:46] VITALS: BMI 24.7
[2023-10-29] MEDS: 0.9 % Sodium Chloride Flush 3 ML SYRINGE IVFLUSH ×3 (00:06→20:46)
[2023-10-29] MEDS: Heparin Sodium,Porcine 5,000 UNIT/ML VIAL 4000 UNIT IVPUSH (00:55)
[2023-10-29] MEDS: Heparin Sodium,Porcine/1/2NS 25,000 UNIT/250 ML IV.SOLN 10 UNIT IVCONT (00:59)
--- NOTE | 2023-10-29 01:02 | PC.NURSE ---
Pt aox4 resting at the bedside. VSS. Heparin bolus given as ordered per Dr. Simon. Pt tolerated well. Heparin drip started at 10ml/hr as per protocol. No bleeding or sob. Pt continues to report chest pressure, 04/19. States no pain but pressure. Crackers and drink provided. Pt aware of plan of care. Pending bed assignment.
--- NOTE | 2023-10-29 02:41 | PC.NURSE ---
Pt aox4 resting at the bedside. Reports improvement with chest pressure, 2/10. Denies sob. No bleeding noted. Heparin drip infusing at 10ml/hr. Sinus chrissie on monitor with HR 53. Next lab draw due at 0700. Pending bed assignment. Pt aware of plan of care.
[2023-10-29 05:22] LABS: Estimated Average Glucose 128 mg/dL; Hemoglobin A1c % 6.1 % (<6.0)
[2023-10-29 05:24] VITALS: BP 117/75; PULSE 54; RESP 17; TEMP 36.5; O2SAT 100
--- NOTE | 2023-10-29 07:00 | CA_ITS ---
Transthoracic Echocardiogram Patient (Last, First, Middle): Jaguar Motley, Gender: Male Date of : 1965 Age: 58 Procedure Date: 10/29/2023 Procedure Type: Transthoracic [place] [facility] [place]: 185.42 cm Weight: 84.82 kg BSA: 2.09 m2 Heart Rate: bpm BP: 117 / 75 mmHg Machine Adjuster: ARACELI Referring MD: Tonny Simon MD Purchasing Supervisor: Osiel Danielle MD Symptoms: NSTEMI Study Quality: Adequate ECG Rhythm: Sinus Conclusions: - 1. Low normal LV ejection fraction 50-55% with grade 1 diastolic dysfunction with regional wall motion abnormality in the circumflex territory 2. Mild mitral regurgitation 3. Mildly dilated ascending aorta at 4 cm 4. No gross pericardial effusion Findings Left Ventricle Normal left ventricular cavity size. There is normal left ventricular wall thickness. The left ventricular systolic function is low normal. The visually estimated ejection fraction is between 50-55%. Spectral Doppler is indicative of an impaired relaxation filling pattern. E/E prime ratio is <8, consistent with normal filling pressures. Evidence suggests grade I (mild) diastolic dysfunction. Peak GLS is -15.2%, which is mildly reduced. Wall Motion Rest Echo Findings The entire lateral wall and basal inferior segment are hypokinetic. All other scored wall segments showed normal motion. Right Ventricle Normal right ventricular cavity size and systolic function. Atria The left atrium is normal in size. There is no evidence of interatrial shunt. The right atrium is normal in size. Aortic Valve There is mild calcification of the aortic valve. There is no aortic valve stenosis. There is no aortic valve regurgitation. Mitral Valve There is mild anterior and posterior mitral leaflet thickening. There is mild mitral valve regurgitation. There is no mitral valve stenosis. Pulmonic Valve The pulmonic valve was not well visualized. Tricuspid Valve Likely normal tricuspid valve structure and function. Tricuspid regurgitation envelope is inadequate for calculation of right ventricular systolic pressure. Normal right atrial pressure. Great Vessels The pulmonary artery was not well visualized. There is mild dilatation of the ascending aorta measuring 4.00 cm. Venous The inferior vena cava is normal in size and collapses greater than 50% with inspiration. Pericardium/Pleural There is no evidence of pericardial effusion. Prior Study Comparison No prior study available for comparison. Measurements 2D Linear Measurements IVSd: 1.08 0.6-0.9/0.6-1.0 cm LVIDd: 4.89 3.9-5.3/4.2-5.9 cm LVIDd Index: 2.34 2.4-3.2/2.2-3.1 cm/m2 LVIDs: 2.60 2.0-3.6 cm LVPWd: 1.11 0.7-1.1 cm LA Diam: 3.70 2.7-3.8/3.0-4.0 cm LAIDs Index: 1.77 1.5-2.3 cm/m2 LV Mass: 247.48 67-162/88-224 g LV Mass Index: 118.41 43-95/49-115 g/m2 LVOT Diam: 2.00 3.0+(-)1.3 cm 2D Systolic Function EF 4C: 53.80 >55% EF 2C: 51.00 >55% EF BiP: 51.50 >55% Mitral Valve MV Pk E: 0.57 MV PK A: 0.72 MV Decel Time: 213.00 E/A: 0.80 E'Lateral: 11.50 E'Medial: 8.59 E/E' Med: 6.60 E/E' Lat: 5.00 PHT: 62.00 MVA PHT: 3.55 Decel [place]: 2.68 Aortic Valve AoV Pk Lg: 1.07 AoV Mn Lg: 0.75 AoV VTI: 0.24 AoV Pk Grad: 5.00 Aov Mn Grad: 2.00 JAGUAR Cont.VTI: 2.25 LVOT LVOT Pk Lg: 0.80 LVOT Mn Lg: 0.58 LVOT VTI: 0.17 LVOT Pk Grad: 3.00 LVOT Mn Grad: 1.00 LVOT Diam: 2.00 LVOT Area: 3.14 Diastolic Function MV Pk E: 0.57 MV Pk A: 0.72 E/A: 0.80 E'Medial: 8.59 E/E' Med: 6.60 E' Laterial: 11.50 E/E' Lat: 5.00 Right Ventricle TAPSE (mm): 20.90 TVS' Lg: 11.10 Tricuspid Valve RA Press: 3.00 Great Vessels Aorta Sinus of Valsalva: 3.92 2.0-3.[address] [place]: 2.55 1.7-3.4 cm Ao Asc: 4.00 2.1-3.4 cm Updated in Other Vendor System with Status of Final Osiel Danielle MD electronically signed on 10/29/2023 4:35:09 PM with status of Final
[2023-10-29 07:32] VITALS: BP 130/80; PULSE 57; RESP 14; TEMP 36.5; O2SAT 98
[2023-10-29 07:36] LABS: MANUAL DIFF FLAG NO
[2023-10-29 07:38] LABS: Basophils Percent Auto 0.5 % (0-2); Eosinophils Absolute Auto 0.4 X10*3/uL (0.0-0.4); Eosinophils Percent Auto 4.4 % (0-4); Hematocrit 44.2 % (42.0-52.0); Imm Gran Abs Auto 0.03 X10*3/uL (0.00-0.03); Imm Gran Pct Auto 0.4 % (0.0-0.4); Lymphocytes Absolute Auto 1.8 X10*3/uL (1.2-4.9); Lymphocytes Percent Auto 21.3 % (20-40); Mean Corpuscular HGB Conc 33.9 g/dl (31.0-36.0); Mean Corpuscular Hemoglobin 30.9 pg (27.0-33.0); Mean Corpuscular Volume 90.9 fL (80.0-98.0); Mean Platelet Volume 9.3 fL (9.4-12.4); Monocytes Absolute Auto 0.9 X10*3/uL (0.1-1.2); Monocytes Percent Auto 9.9 % (2-11); Neutrophils Absolute Auto 5.4 x10*3/uL (2.0-8.3); Neutrophils Percent Auto 63.5 % (45-73); Platelet Count 152 X10*3/uL (160-400); Red Blood Count 4.86 X10*6/uL (4.60-5.80); Red Cell Distribution Width 13.3 % (11.0-16.0); White Blood Count 8.6 X10*3/uL (4.8-10.8)
[2023-10-29 07:48] LABS: PTT Heparin Drip 74.8 SEC (53-77.9)
[2023-10-29 07:52] LABS: Anion Gap 11 (12-20); Blood Urea Nitrogen 17 mg/dL (9-16); Calcium 8.9 mg/dL (8.4-10.2); Carbon Dioxide 27 mmol/L (22-29); Chloride 109 mmol/L (96-108); Estimated Glomerular Filt Rate > 60; Glucose Random 114 mg/dL (60-115); Sodium 143 mmol/L (135-145)
--- NOTE | 2023-10-29 08:23 | PHA.MEDREC ---
Pharmacy Consult ? Medication Reconciliation Pharmacy has completed the medication reconciliation. Went to speak to patient, he was able to tell me he picks up from [facility] in [place]. He stated hes on a bunch of meds, including metformin, vitamin b, omeprazole, inhalers , percs and some antibiotics. When I called [facility] they stated the only thing hes picked up even remotely recently was his vitamin b 12 injection. Claims ranged from 12/02 to 03/02. Patient has not been compliant in more than 6 months. 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
[2023-10-29 08:50] LABS: Glucose, Whole Blood 150 mg/dL (60-115)
[2023-10-29 09:11] VITALS: BP 133/74; PULSE 53; RESP 20; TEMP 35.9; O2SAT 98
[2023-10-29] MEDS: Aspirin Enteric Coated 81 MG TABLET.DR PO (09:47)
--- NOTE | 2023-10-29 10:50 | PM.DS ---
DS: Providers Provider Date of Service: 10/30/23 Date of admission: 10/28/23 21:36 Primary care physician: None Physician Consults: 10/28/23 21:36 Consult to Cardiology Routine Consulting Provider: [facility] [place] Cardiovascular Services Reason for consultation: NSTEMI Has provider been notified: Yes DS: Diagnosis Discharge Diagnosis (1) Non-ST elevation MN (NSTEMI): Status: Acute DS: Summary Hospital Course Hospital Course: from initial hpi: 58-year-old male with pertinent history of IgG deficiency, autoimmune hepatitis, asthma, [id number] diabetes mellitus, tobacco use disorder not on home oxygen who presents to the emergency department for evaluation of chest pain. Patient states he had sudden onset of substernal chest pain that started around 14:00 when he was driving. It continued and did not relieve with rest and hence he called EMS. No history of similar complaints in the past. No history of MN. His brother had an MN at the age of 50. The pain radiated to the shoulders and left arm. Also had associated sweating and dizziness. Patient states the pain slightly subsided with the 2nd dose of nitro by EMS. Had an episode of nausea/vomiting/abdominal discomfort and diarrhea about 3 days prior to presentation with self resolved. Patient admits to smoking about half a pack of cigarettes per day. No fever, chills, shortness of breath, abdominal pain, changes in urinary or bowel habits. In the emergency department, troponin was found to be elevated and Cardiology was consulted. hospital course: Patient was admitted for NSTEMI. Was treated with aspirin, statin, IV heparin, high sensitivity troponin elevated to 16K. Was seen by Cardiology [place] [facility] [place]. for DM, metformin held, treated with insulin sliding scale, a1c noted to be 6.1. for hisoptry of igG deficiency and autoimmune hepatitis will follow up outpatient. for nicotine dependence cessation recommended. Time Attestation Discharge coordination time: Greater than 30 minutes Quality: Safe Use of Opioids Does Pt have an Active Cancer Diagnosis on the Problem List?: No Quality: Stroke Does the patient have a stroke diagnosis?: No Physical Exam Vital Signs: Vital Signs: Last Vital Signs Temp 96.6 F L 10/29/23 09:11 Pulse 53 10/29/23 09:11 Resp 20 10/29/23 09:11 BP 133/74 10/29/23 09:11 Pulse Ox 98 10/29/23 09:11 O2 Del Method Room Air 10/29/23 09:11 BMI result Body Mass Index 24.7 Const: Other: Appearance: Alert. Oriented X3. No acute distress. Eyes: Pupils equal, round and reactive to light. ENT: Pharynx normal. Neck: Normal inspection. Neck supple. No lymph nodes noted. No crepitus CVS: Normal heart rate and rhythm. Pulses normal. Normal S1 and S2 Respiratory: No respiratory distress. Breath sounds normal. No Wheezing. No rales Abdomen: Soft and nontender. No rigidity. No distention. Skin: Skin warm and dry. Normal skin color. Normal skin turgor. Extremities: No lower extremity edema. No Lacerations. No Rash Neuro: Oriented X 3. No motor deficit. No sensory deficit. Moving all extremities. No slurred speech. CN 2 through 12 grossly intact Psych: calm, cooperative, normal affect DS: Data Data Completed and Pending Labs on day of discharge: Laboratory Results - last 24 hr 10/28/23 10/28/23 10/28/23 18:05 18:10 19:50 WBC 8.8 RBC 4.87 Hgb 14.7 Hct 44.2 MCV 90.8 MCH 30.2 MCHC 33.3 RDW 13.2 Plt Count 170 MPV 9.5 Immature Gran % (Auto) 0.2 Neut % (Auto) 72.9 Lymph % (Auto) 14.7 L [place] % (Auto) 8.6 Eos % (Auto) 3.0 Baso % (Auto) 0.6 Lymph # (Auto) 1.3 [place] # (Auto) 0.8 Eos # (Auto) 0.3 Baso # (Auto) 0.1 Abs Immat Gran (auto) 0.02 Absolute Neuts (auto) 6.4 Absolute Nucleated RBC 0.000 Nucleated RBC % (auto) 0.0 PT INR APTT aPTT Heparin Protocol Sodium 142 Potassium 4.0 Chloride 109 H Carbon Dioxide 24 Anion Gap 13 BUN 19 H Creatinine 1.15 Estim Creat Clear Calc 77.1 Estimated GFR > 60 POC Glucose Random Glucose 127 H Estimat Average Glucose Hemoglobin A1c % Calcium 9.1 Troponin I High Sens 180.6 H* B-Natriuretic Peptide < 10 10/28/23 10/29/23 10/29/23 21:39 00:48 07:30 WBC 8.6 RBC 4.86 Hgb 15.0 Hct 44.2 MCV 90.9 MCH 30.9 MCHC 33.9 RDW 13.3 Plt Count 152 L MPV 9.3 L Immature Gran % (Auto) 0.4 Neut % (Auto) 63.5 Lymph % (Auto) 21.3 [place] % (Auto) 9.9 Eos % (Auto) 4.4 H Baso % (Auto) 0.5 Lymph # (Auto) 1.8 [place] # (Auto) 0.9 Eos # (Auto) 0.4 Baso # (Auto) 0.0 Abs Immat Gran (auto) 0.03 Absolute Neuts (auto) 5.4 Absolute Nucleated RBC 0.000 Nucleated RBC % (auto) 0.0 PT 11.7 INR 1.0 APTT 28.0 aPTT Heparin Protocol 74.8 Sodium 143 Potassium 4.0 Chloride 109 H Carbon Dioxide 27 Anion Gap 11 L BUN 17 H Creatinine 1.02 Estim Creat Clear Calc 87.0 Estimated GFR > 60 POC Glucose Random Glucose 114 Estimat Average Glucose 128 Hemoglobin A1c % 6.1 H Calcium 8.9 Troponin I High Sens 662.9 H* D 41454.5 H* D B-Natriuretic Peptide 10/29/23 08:38 WBC RBC Hgb Hct MCV MCH MCHC RDW Plt Count MPV Immature Gran % (Auto) Neut % (Auto) Lymph % (Auto) [place] % (Auto) Eos % (Auto) Baso % (Auto) Lymph # (Auto) [place] # (Auto) Eos # (Auto) Baso # (Auto) Abs Immat Gran (auto) Absolute Neuts (auto) Absolute Nucleated RBC Nucleated RBC % (auto) PT INR APTT aPTT Heparin Protocol Sodium Potassium Chloride Carbon Dioxide Anion Gap BUN Creatinine Estim Creat Clear Calc Estimated GFR POC Glucose 150 H Random Glucose Estimat Average Glucose Hemoglobin A1c % Calcium Troponin I High Sens B-Natriuretic Peptide Discharge Plan Discharge Anticipated Discharge Date/Time: 10/29/23 10:49 Patient Disposition: Xfer Acute Care Hospital Discharge Diagnosis: nstemi Referrals: Physician,None [Primary Care Provider] - 1 Week Discharge Medications: New atorvastatin 40 mg Tablet 40 mg PO BEDTIME Qty: 0 0RF aspirin 81 mg Tablet,Delayed Release (Dr/Ec) 81 mg PO DAILY Qty: 0 0RF heparin(porcine) in 0.45% NaCl 25,000 unit/250 mL Parenteral Solution 25,000 unit continuous IV infusion .Q0M Qty: 0 0RF Continued omeprazole 20 mg capsule,delayed release(DR/EC) 20 mg PO BID Qty: 60 0RF cyanocobalamin (vitamin B-12) 1,000 mcg/mL Syringe 1,000 mcg QWEEK Rx Instructions: subq Discharge Orders: Discharge Order (Routine); Ordered 10/29/23 Ordered By: Neptali Orellana Diet: Advance to usual diet Activity on Discharge: As tolerated Stand Alone Forms: Patient Portal Discharge page Care Plan Goals: recovery Health Concerns: nstmei Plan of [place] [facility] [place] Assessment: see above Discharge Date/Time: 10/30/23 07:58
--- NOTE | 2023-10-29 10:56 | PM.CNCAR ---
History of Present Illness History of Present Illness Date of Service: 10/29/23 Requesting physician: Neptali Orellana Consult reason: other (NSTEMI) Chief complaint: Chest pain Narrative: I was consulted to see Jaguar in cardiology consultation today for NSTEMI. Patient is a pleasant 58-year-old male with prior history of autoimmune hepatitis, IgG deficiency, prior history of lymphoma, history of diabetes but not on medications and says his sugars have been fine, hypertension, hyperlipidemia not on medications was in usual state of health. He recently moved from [place] about 8 months ago. Has not been able to find any local medical providers and has no PCP. Patient was driving yesterday routinely and he developed retrosternal chest pressure which was constantly getting worse. He stopped over at home and was trying to help his neighbor but about door but continued to have chest pressure with shortness of breath and had fuzzy vision. He then went home and told his that he was having trouble breathing and they called EMS. Will about an hour before he arrived in the emergency room. The given 2 sublingual nitroglycerin with some partial relief and subsequently burden IV and put in nitropaste and symptoms resolved. His initial EKG was nonischemic. His troponins arising in the last troponin of 16,000. Bedside echo shows anterolateral and inferolateral wall motion abnormality circumflex territory. He is currently not having any significant chest pain which is much improved. No arrhythmias. No orthopnea or PND. No lightheadedness, syncope. His heart rate is on the slow side. Currently receiving IV heparin, has received aspirin, nitropaste and high-intensity statins. He is on insulin sliding scale. Patient smokes about half pack a day. He said generally otherwise he has good health and has no prior cardiac issues. His brother had an NV at age 50 Review of Systems Constitutional: Constitutional: Reports no additional constitutional complaints Eyes: Eyes: Reports blurry vision Cardiovascular: Cardiovascular: Reports chest pain at rest, Denies syncope, Denies leg edema, Denies lightheadedness, Denies Loss of Consciousness, Denies palpitations and Reports dyspnea Respiratory: Respiratory: Reports no additional respiratory complaints and Reports dyspnea Gastrointestinal: Gastrointestinal: Reports no additional gastrointestinal complaints Genitourinary: Genitourinary: Reports no additional male genitourinary complaints Musculoskeletal: Musculoskeletal: Reports no additional musculoskeletal complaints Integumentary/Breasts: Skin/Breast: Reports system reviewed and no additional complaints, except as docu Neurologic: Reports system reviewed and no additional complaints, except as documented and Denies syncope Endocrine: Endocrine: Denies palpitations [facility] Past Medical History Medical History IgG deficiency Hypertension Asthma Autoimmune hepatitis Social History Social History Patient Tobacco Use Status: Current everyday Tobacco user Meds Allergies Allergy/AdvReac Type Severity Reaction Status Date / Time No Known Allergies Allergy Verified 10/28/23 17:51 Active Medications: Current Medications Acetaminophen (Acetaminophen 325 Mg Tablet) 650 mg PO Q6H PRN PRN Reason: Pain, Mild (Pain Scale 1-3) Aspirin (Aspirin Enteric Coated 81 Mg Tablet.) 81 mg PO DAILY [facility] Last Admin: 10/29/23 09:47 Dose: 81 mg Atorvastatin Calcium (Atorvastatin Calcium 40 Mg Tablet) 40 mg PO BEDTIME CHIP Dextrose (Dextrose 50 % 25 Gm/50 Ml Syringe) 25 gm IVPUSH Q15M PRN; Protocol PRN Reason: per Hypoglycemia Standing Ord. Glucose (Glucose Gel 15 Gm Gel..Gram.) 15 gm PO Q15M PRN; Protocol PRN Reason: per Hypoglycemia Standing Ord. Heparin Sodium (Porcine) (Heparin Sodium,Porcine 5,000 Unit/Ml Vial) 3,400 unit IVPUSH PROTOCOL BOLUS PRN; Protocol PRN Reason: 40 unit/kg - Heparin Protocol Heparin Sodium (Porcine) (Heparin Sodium,Porcine 5,000 Unit/Ml Vial) 6,800 unit IVPUSH PROTOCOL BOLUS PRN; Protocol PRN Reason: 80 unit/kg - Heparin Protocol Heparin Sodium/Sodium Chloride (Heparin Sodium,Porcine/1/2ns) 25,000 unit in 250 mls @ 0 mls/hr IVCONT .Q0M CHIP; Protocol Last Titration: 10/29/23 08:02 Dose: 11.75 units/kg/hr, 10 mls/hr Insulin Human Lispro (Insulin Lispro 100 Unit/Ml 3 Ml Vial) 0 unit SUBCUT QIDACHS [facility]; Protocol Last Admin: 10/29/23 08:13 Dose: Not Given Melatonin (Melatonin 3 Mg Tablet) 6 mg PO BEDTIME PRN PRN Reason: Insomnia Omeprazole (Omeprazole 20 Mg Capsule.) 20 mg PO BID [facility] Ondansetron HCl (Ondansetron Hcl 4 Mg/2 Ml Vial) 4 mg IVPUSH Q8H PRN PRN Reason: Nausea and Vomiting Sodium Chloride (0.9 % Sodium Chloride Flush 3 Ml Syringe) 3 ml IVFLUSH QSHIFT [facility] Last Admin: 10/29/23 08:12 Dose: Not Given Home Medications Medication Instructions Recorded Confirmed Last Taken Type cyanocobalamin (vitamin B-12) 1,000 mcg QWEEK 10/29/23 10/29/23 Unknown History 1,000 mcg/mL injection syringe Physical Exam Vital Signs: Vital Signs: Last Vital Signs Temp 96.6 F L 10/29/23 09:11 Pulse 53 10/29/23 09:11 Resp 20 10/29/23 09:11 BP 133/74 10/29/23 09:11 Pulse Ox 98 10/29/23 09:11 O2 Del Method Room Air 10/29/23 09:11 BMI result Body Mass Index 24.7 Const: General: cooperative, comfortable, no acute distress, well developed, alert and awake Nutritional Appearance: average body habitus and well nourished Orientation/consciousness: patient oriented x3 HEENT: Head: Yes normocephalic and Yes atraumatic Neck: Neck: Yes trachea midline, Yes supple and Yes no JVD Resp: Effort & Inspection: normal respiratory effort Auscultation: clear to auscultation bilaterally Cardio: Jugular venous distension: no JVD Palpation: normal PMI Rate: regular rate Rhythm: regular rhythm Heart sounds: S1 normal heart sound present, S2 normal heart sound present, no click, no gallops, no murmurs and no rubs GI: Auscultation: normal bowel sounds Skin: General skin exam: no rashes or lesions noted Neuro: General: patient oriented x3 and no focal motor deficits Extrem: General: Yes no clubbing, cyanosis or edema Objective Labs and Meds 10/29/23 07:30 10/29/23 07:30 Lab results: Laboratory Results - last 24 hr 10/28/23 10/28/23 10/28/23 18:05 18:10 19:50 WBC 8.8 RBC 4.87 Hgb 14.7 Hct 44.2 MCV 90.8 MCH 30.2 MCHC 33.3 RDW 13.2 Plt Count 170 MPV 9.5 Immature Gran % (Auto) 0.2 Neut % (Auto) 72.9 Lymph % (Auto) 14.7 L Real % (Auto) 8.6 Eos % (Auto) 3.0 Baso % (Auto) 0.6 Lymph # (Auto) 1.3 Real # (Auto) 0.8 Eos # (Auto) 0.3 Baso # (Auto) 0.1 Abs Immat Gran (auto) 0.02 Absolute Neuts (auto) 6.4 Absolute Nucleated RBC 0.000 Nucleated RBC % (auto) 0.0 PT INR APTT aPTT Heparin Protocol Sodium 142 Potassium 4.0 Chloride 109 H Carbon Dioxide 24 Anion Gap 13 BUN 19 H Creatinine 1.15 Estim Creat Clear Calc 77.1 Estimated GFR > 60 POC Glucose Random Glucose 127 H Estimat Average Glucose Hemoglobin A1c % Calcium 9.1 Troponin I High Sens 180.6 H* B-Natriuretic Peptide < 10 10/28/23 10/29/23 10/29/23 21:39 00:48 07:30 WBC 8.6 RBC 4.86 Hgb 15.0 Hct 44.2 MCV 90.9 MCH 30.9 MCHC 33.9 RDW 13.3 Plt Count 152 L MPV 9.3 L Immature Gran % (Auto) 0.4 Neut % (Auto) 63.5 Lymph % (Auto) 21.3 Real % (Auto) 9.9 Eos % (Auto) 4.4 H Baso % (Auto) 0.5 Lymph # (Auto) 1.8 Real # (Auto) 0.9 Eos # (Auto) 0.4 Baso # (Auto) 0.0 Abs Immat Gran (auto) 0.03 Absolute Neuts (auto) 5.4 Absolute Nucleated RBC 0.000 Nucleated RBC % (auto) 0.0 PT 11.7 INR 1.0 APTT 28.0 aPTT Heparin Protocol 74.8 Sodium 143 Potassium 4.0 Chloride 109 H Carbon Dioxide 27 Anion Gap 11 L BUN 17 H Creatinine 1.02 Estim Creat Clear Calc 87.0 Estimated GFR > 60 POC Glucose Random Glucose 114 Estimat Average Glucose 128 Hemoglobin A1c % 6.1 H Calcium 8.9 Troponin I High Sens 662.9 H* D 69148.5 H* D B-Natriuretic Peptide 10/29/23 08:38 WBC RBC Hgb Hct MCV MCH MCHC RDW Plt Count MPV Immature Gran % (Auto) Neut % (Auto) Lymph % (Auto) Real % (Auto) Eos % (Auto) Baso % (Auto) Lymph # (Auto) Real # (Auto) Eos # (Auto) Baso # (Auto) Abs Immat Gran (auto) Absolute Neuts (auto) Absolute Nucleated RBC Nucleated RBC % (auto) PT INR APTT aPTT Heparin Protocol Sodium Potassium Chloride Carbon Dioxide Anion Gap BUN Creatinine Estim Creat Clear Calc Estimated GFR POC Glucose 150 H Random Glucose Estimat Average Glucose Hemoglobin A1c % Calcium Troponin I High Sens B-Natriuretic Peptide EKG shows no acute ST T wave changes Imaging Radiologist's impression: Impressions Chest X-Ray 10/28/23 18:23 IMPRESSION: Unremarkable examination. Assessment and Plan (1) Non-ST elevation NV (NSTEMI): Status: Acute Patient with acute non ST-elevation myocardial infarction possibly circumflex territory infarct based on the wall motion abnormality on the echocardiogram with ongoing mild chest pressure but not significant. He is currently on IV heparin drip. His troponins are significantly elevated consistent with myocardial infarction. His baseline bradycardia and cannot use metoprolol therapy at this point time. Continue nitro paste, aspirin, IV heparin high-intensity statin therapy. Patient require cardiac catheterization. This was discussed with him. The process of cardiac catheterization including risk, benefits and alternatives were discussed with him. He understands agrees. Will make arrangements for him to be transferred to [facility]. Will follow with him as outpatient. Procedures Date of Service Date of Service: 10/29/23
[2023-10-29 10:59] VITALS: BP 123/74; PULSE 50; RESP 20; TEMP 36.2; O2SAT 100
[2023-10-29 11:39] LABS: Glucose, Whole Blood 103 mg/dL (60-115)
[2023-10-29 11:51] LABS: COVID-19 Test Negative (Negative); IDNOW Serial# 08D9AD1C
[2023-10-29 14:04] LABS: PTT Heparin Drip 68.8 SEC (53-77.9)
[2023-10-29 15:50] VITALS: BP 111/73; PULSE 57; RESP 16; TEMP 36.8; O2SAT 99
[2023-10-29 16:25] LABS: Glucose, Whole Blood 103 mg/dL (60-115)
[2023-10-29 19:00] VITALS: BP 121/76; PULSE 62; RESP 16; TEMP 36.6; O2SAT 99
[2023-10-29 20:09] LABS: Glucose, Whole Blood 174 mg/dL (60-115)
[2023-10-29] MEDS: Atorvastatin Calcium 40 MG TABLET PO (20:43)
[2023-10-29] MEDS: Omeprazole 20 MG CAPSULE.DR PO (20:43)
[2023-10-29] MEDS: Acetaminophen 325 MG TABLET 650 MG PO (20:52)
[2023-10-30] VITALS: BP 112/62; PULSE 61; RESP 17; TEMP 36.9; O2SAT 97
[2023-10-30] MEDS: Heparin Sodium,Porcine/1/2NS 25,000 UNIT/250 ML IV.SOLN 10 UNIT IVCONT (01:50)
[2023-10-30 03:39] VITALS: BP 127/76; PULSE 89; RESP 18; TEMP 37.1; O2SAT 98
[2023-10-30 07:26] VITALS: BP 120/69; PULSE 70; RESP 20; TEMP 37; O2SAT 97
[2023-10-30 07:34] LABS: Glucose, Whole Blood 156 mg/dL (60-115)
[2023-10-30 07:49] LABS: PTT Heparin Drip 63.9 SEC (53-77.9)
== END 2023-10-30 07:58 | disposition short-term general hospital (02) | DRG 190 ==
LOC: HO.ED 21:38 → HO.EDOVER 22:19 → HO.IMC 10-29 07:31
PROVIDERS: Admitting Provider Student in an Organized Health Care Education/Training Program; Emergency Provider Emergency Medicine; Visit Provider Internal Medicine
DX: I21.4 Non-ST elevation (NSTEMI) myocardial infarction (principal); D80.3 Selective deficiency of immunoglobulin G [IgG] subclasses; E11.9 Type 2 diabetes mellitus without complications; K75.4 Autoimmune hepatitis; F17.210 Nicotine dependence, cigarettes, uncomplicated; Z20.822 Contact with and (suspected) exposure to COVID-19; Z71.6 Tobacco abuse counseling; Z79.82 Long term (current) use of aspirin; Z79.899 Other long term (current) drug therapy
CPT/HCPCS: 36415; 71045; 80048; 82947; 83036; 83880; 84484; 85025; 85610; 85730; 87635; 93005; 93306; 93356; 99285; J1644; Q9957

== ENCOUNTER → 2023-10-28 17:38 | Outpatient (BNV) | payer OTHER, SELFPAY | PROVIDERS: Admitting Provider Student in an Organized Health Care Education/Training Program; Emergency Provider Emergency Medicine; Visit Provider Internal Medicine Cardiovascular Disease | DX: R07.9 Chest pain, unspecified (principal); R00.1 Bradycardia, unspecified | CPT/HCPCS: 93010 ==

== ENCOUNTER 2023-10-28 21:36 | Outpatient (BNV) | payer OTHER, SELFPAY | END 2023-10-29 07:00 | PROVIDERS: Admitting Provider Student in an Organized Health Care Education/Training Program; Emergency Provider Emergency Medicine; Visit Provider Internal Medicine Cardiovascular Disease | DX: I34.0 Nonrheumatic mitral (valve) insufficiency (principal) | CPT/HCPCS: 93306 ==

== ENCOUNTER → 2023-10-28 21:36 | Outpatient (BNV) | payer OTHER, SELFPAY | PROVIDERS: Admitting Provider Student in an Organized Health Care Education/Training Program; Emergency Provider Emergency Medicine; Visit Provider Internal Medicine Cardiovascular Disease | DX: I21.4 Non-ST elevation (NSTEMI) myocardial infarction (principal) | CPT/HCPCS: 99222 ==

== ENCOUNTER → 2023-10-28 21:36 | Outpatient (BNV) | payer OTHER, SELFPAY | PROVIDERS: Admitting Provider Student in an Organized Health Care Education/Training Program; Emergency Provider Emergency Medicine; Visit Provider Student in an Organized Health Care Education/Training Program | DX: I21.4 Non-ST elevation (NSTEMI) myocardial infarction (principal) | CPT/HCPCS: 99222; 99239 ==

== ENCOUNTER → 2023-10-30 23:59 | Outpatient (BNV) | payer OTHER, SELFPAY | PROVIDERS: Visit Provider Internal Medicine Cardiovascular Disease | DX: I21.4 Non-ST elevation (NSTEMI) myocardial infarction (principal) | CPT/HCPCS: 92928; 92973; 93458; 99152 ==

== ENCOUNTER 2023-11-06 15:39 | Outpatient (AMB) | payer OTHER, SELFPAY ==
--- NOTE | 2023-11-06 15:40 | MHC.OFFVIS ---
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 Allergies No Known Allergies Allergy (Verified 11/06/23 15:43) Medication List - Last Reconciled 11/06/23 by Esmer Houston NP-C aspirin 81 mg PO DAILY atorvastatin 40 mg PO BEDTIME cyanocobalamin (vitamin B-12) 1,000 mcg QWEEK gabapentin 300 mg PO BID heparin(porcine) in 0.45% NaCl 25,000 unit/250 mL 25,000 units (250 mL) continuous IV infusion .Q0M loratadine 10 mg PO DAILY metformin 500 mg PO TID omeprazole 20 mg PO BID oxycodone-acetaminophen 10-325 mg 1 tab PO Q8H PRN ticagrelor 90 mg PO BID HPI [facility] [place] [place] follow up HPI Details Jaguar is a 58-year-old male with past medical history of autoimmune hepatitis, autoimmune parotitis, IgG deficiency, lymphoma history who recently moved to this area from [place] and presented to [facility] on 10/28 with chest discomfort. He ruled in for NSTEMI. He was transferred to [facility] where he underwent cardiac catheterization and received RADHA to the 1. Today he reports that he has been building a deck this past week with his son-in-law. He was doing physical activities such as carrying the wood and actual building of the deck. He has some soreness at his right radial catheterization site. There is resolving ecchymosis to that region. He said initially when he got out of the hospital on 10/31 he continued to have a few sharp pains to his left chest region. Now he states that has resolved and he has not been getting any chest discomfort in the last few days. He said prior to having his NH he was getting symptoms over the last month which was sharp chest pains during physical activity. Currently no shortness of breath, palpitations, presyncope, syncope, PND, orthopnea or edema. He is taking all meds as directed. No bleeding issues reported. [facility] Medical History (Updated 11/06/23 @ 16:39 by KULWINDER FloresC) IgG deficiency Hypertension Asthma Autoimmune hepatitis Family History Brother Stroke Social History Household Members: Significant Other Do you presently have visiting nurse or other home services: No Patient Tobacco Use Status: Current everyday Tobacco user Tobacco use type: Cigarette Cigarette Packs Per Day: 0.5 Cigarettes Per Day: 10.0 Years Smoked: 30 e-Cigarette/Vaping Use: Never Used Second Hand Smoke Exposure: No Substance Use Type: Unknown Review of Systems Const All systems reviewed & are unremarkable except as noted in HPI and below ENT Denies dizziness Card Denies chest pain, Denies chest pain at rest, Denies chest pain with activity, Denies rapid heart rate, Denies pedal edema, Denies edema, Denies leg edema, Denies lightheadedness, Denies palpitations, Denies dyspnea, Denies dyspnea on exertion and Denies orthopnea Resp Denies cough, Denies dyspnea and Denies dyspnea on exertion GI Denies hematochezia and Denies change in stool character Musc Details: bruising right forearm Denies abnormal gait, Denies limited range of motion, Denies muscle cramps, Denies muscle weakness, Denies numbness, Denies radiating pain into limb, Denies stiffness and Denies tingling Neuro Denies abnormal gait, Denies dizziness, Denies numbness and Denies tingling Endo Denies palpitations Physical Exam Vital Signs: Last Vital Signs Pulse 58 11/06/23 15:41 BP 114/62 11/06/23 15:41 BMI result Body Mass Index 25.0 Const General: cooperative, healthy appearing, comfortable and no acute distress Orientation/consciousness: patient oriented x3 Neck Neck: Yes normal visual inspection Resp Effort & Inspection: normal respiratory effort Auscultation: clear to auscultation bilaterally, no crackles, no rales, no rhonchi and no wheezes Cardio Jugular venous distension: no JVD Rate: regular rate Rhythm: regular rhythm Heart sounds: S1 normal heart sound present, S2 normal heart sound present, no murmurs and no rubs Skin General skin exam: no rashes or lesions noted Neuro General: patient oriented x3 Extrem General: Yes normal to inspection and No no pedal edema Psych Appearance: grossly normal Mental Status: mental status grossly normal Speech and movement: Normal speech and movement present Assessment & Plan Assessment & Plan (1) Non-ST elevation NH (NSTEMI): Code(s): I21.4 - Non-ST elevation (NSTEMI) myocardial infarction Plan: [place] [facility] [place] with chest discomfort. He ruled in for ACS with troponins up to 16,000. Echocardiogram showed EF 50-55%, grade 1 diastolic dysfunction, regional wall motion abnormality in the left circumflex territory, ascending aorta 4 cm. He was started on appropriate med management and transferred to [facility] where he underwent cardiac catheterization on 10/30/2023 showing OM1 proximal 100% stenosis with thrombus. He underwent thrombectomy and RADHA placement. Today he reports that he built a deck with his son-in-law over the last few days. He has not had exertional chest discomfort. He did have a few sharp pains in the 1st days following discharge but they resolved. Right radial catheterization site is feeling well. There is resolving ecchymosis to the area and right radial artery is easily palpable. He reports compliance with his medications. No bleeding issues reported. All the above reviewed with him. Instructed on not doing physical activity like deck building for the next few weeks. Discussed cardiac rehab and he is willing to attend. Continue aspirin indefinitely. Continue Brilinta uninterrupted for at least 1 year. Continue atorvastatin with ideal LDL goal less than 70. Reviewed smoking cessation. Signs and symptoms of angina discussed. Emergency care if needed for any recurrent symptoms. Cardiology follow-up in 3 months, sooner if needed. (2) S/P cardiac cath: Comment: Cardiac catheterization done 10/30/2023 showing lad proximal 50% stenosis, 1st diagonal 65% stenosis, left circumflex OM1 proximal 100% stenosis with thrombus, thrombectomy and RADHA placed. OM to 40% stenosis. Code(s): Z98.890 - Other specified postprocedural states Plan: Right radial catheterization site healing. Easily palpable radial pulse, resolving ecchymosis along forearm. Right hand assessment normal (3) Hyperlipidemia: Code(s): E78.5 - Hyperlipidemia, unspecified Plan: [place] LDL goal less than 70. Continue atorvastatin. Plan for fasting lipid profile around time of next visit. (4) Hypertension: Code(s): I10 - Essential (primary) hypertension Plan: Blood pressure well controlled at this time. Continue current med management. (5) Stented coronary artery: Code(s): Z95.5 - Presence of coronary angioplasty implant and graft Plan: As above Plan Time spent on chart review, documentation, interview and assessment Orders: Orders Cardiac Rehab Today I21.4 - Non-ST elevation (NSTEMI) myocardial infarction, Z95.5 - Presence of coronary angioplasty implant and graft Coding Level of Care Code Est Pt Level 4 (13235) Diagnoses Non-ST elevation NH (NSTEMI) I21.4 S/P cardiac cath Z98.890 Hyperlipidemia E78.5 Hypertension I10 Stented coronary artery Z95.5 Time Spent (min) 30
[2023-11-06 15:41] VITALS: BP 114/62; PULSE 58; BMI 25.0
== END 2023-11-06 16:27 | disposition home or self-care (01) ==
PROVIDERS: Visit Provider Nurse Practitioner Family
DX: I21.4 Non-ST elevation (NSTEMI) myocardial infarction (principal); Z98.890 Other specified postprocedural states; E78.5 Hyperlipidemia, unspecified; I10 Essential (primary) hypertension; Z95.5 Presence of coronary angioplasty implant and graft
CPT/HCPCS: 99214

== ENCOUNTER → 2023-11-06 15:39 | Outpatient (BNVA) | payer OTHER, SELFPAY | PROVIDERS: Visit Provider Nurse Practitioner Family | DX: I21.4 Non-ST elevation (NSTEMI) myocardial infarction (principal); I10 Essential (primary) hypertension; E78.5 Hyperlipidemia, unspecified; Z98.890 Other specified postprocedural states; Z95.5 Presence of coronary angioplasty implant and graft | CPT/HCPCS: 99212 ==

== ENCOUNTER 2024-01-07 08:30 | Outpatient (RCR) | payer OTHER, SELFPAY ==
[2023-12-05 15:45] LABS: Glucose, Whole Blood 135 mg/dL (60-115)
== END 2024-02-10 09:06 | disposition home or self-care (01) ==
LOC: HO.CR 08:30
PROVIDERS: PCP Internal Medicine; Visit Provider Nurse Practitioner Family
DX: I21.4 Non-ST elevation (NSTEMI) myocardial infarction (principal); Z95.5 Presence of coronary angioplasty implant and graft
CPT/HCPCS: 82947; 93798

== ENCOUNTER 2024-02-05 13:17 | Outpatient (AMB) | payer OTHER, SELFPAY ==
--- NOTE | 2024-02-05 13:25 | A.OFFVIS_ITS ---
Intake Vital Signs 02/05/24 13:26 Height 6 ft 1 in Weight 200 lb 9.93 oz BMI 26.5 BP 120/80 Blood Pressure Location Lt brachial Position Sitting Pulse 76 Intake Visit Reasons: 3 month follow-up Intake Note: 3 month follow-up palpitations mostly at night Faith Doctor Required: No Allergies No Known Allergies Allergy (Verified 11/06/23 15:43) Medication List - Last Reconciled 02/05/24 by Osiel Danielle MD aspirin 81 mg PO DAILY atorvastatin 40 mg PO BEDTIME gabapentin 300 mg PO BID loratadine 10 mg PO DAILY metformin 500 mg PO TID omeprazole 20 mg PO BID oxycodone-acetaminophen 10-325 mg 1 tab PO Q8H PRN ticagrelor 90 mg PO BID 90 days HPI HPI Comments History of Present Illness Details Jaguar comes for follow-up. He said he stopped going to rehab because he has been getting intermittent job sensation with skipped heartbeats with fluttering in his chest almost every other night. These are very bothersome to him. 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 The symptoms are not with exertion. However he also notice that his asthma is poorly controlled at this point time, says he has not been able to see a pulmonary doctor since he moved from [place] and probably related to allergy his breathing is got worse. Yesterday use 6 of his inhalers without much relief. He is very bothered by the symptoms. He has been taking all his medications regularly. He has has had difficulty getting his prescriptions filled and seeing primary care physician. [facility] Medical History (Updated 02/05/24 @ 13:50 by Osiel Danielle MD) IgG deficiency Hypertension Asthma Autoimmune hepatitis Surgical History (Updated 02/05/24 @ 13:50 by Osiel Danielle MD) Stented coronary artery S/P cardiac cath Family History Brother Stroke Social History Household Members: Significant Other Do you presently have visiting nurse or other home services: No Patient Tobacco Use Status: Current everyday Tobacco user Tobacco use type: Cigarette Cigarette Packs Per Day: 0.5 Cigarettes Per Day: 10.0 Years Smoked: 30 e-Cigarette/Vaping Use: Never Used Second Hand Smoke Exposure: No Substance Use Type: Unknown Review of Systems Const Denies chills, Denies fatigue, Denies fever(s), Denies frequent falls, Denies weakness, Denies weight gain and Denies weight loss ENT Denies dizziness Card Denies chest pain, Denies leg edema, Denies lightheadedness, Denies palpita tions, Denies dyspnea, Denies dyspnea on exertion, Denies orthopnea and Denies other (loss of consciousness) Resp Denies cough, Denies dyspnea and Denies dyspnea on exertion GI Denies hematochezia and Denies change in stool character Musc Denies abnormal gait, Denies muscle weakness, Denies numbness, Denies radiating pain into limb and Denies tingling Neuro Denies abnormal gait, Denies dizziness, Denies frequent falls, Denies numbness, Denies tingling and Denies weakness Endo Denies fatigue and Denies palpitations Physical Exam Vital Signs: Last Vital Signs Pulse 76 02/05/24 13:26 BP 120/80 02/05/24 13:26 BMI result Body Mass Index 26.5 Const General: cooperative, healthy appearing, comfortable and no acute distress Orientation/consciousness: patient oriented x3 Neck Neck: Yes normal visual inspection Resp Effort & Inspection: normal respiratory effort Auscultation: clear to auscultation bilaterally, no crackles, no rales, no rhonchi and wheezes scattered wheezes Cardio Jugular venous distension: no JVD Rate: regular rate Rhythm: regular rhythm Heart sounds: S1 normal heart sound present, S2 normal heart sound present, no murmurs and no rubs Skin General skin exam: no rashes or lesions noted Neuro General: patient oriented x3 Extrem General: Yes normal to inspection and No no pedal edema Psych Appearance: grossly normal Mental Status: mental status grossly normal Speech and movement: Normal speech and movement present Assessment & Plan Assessment & Plan (1) Chest tightness: Code(s): R07.89 - Other chest pain Plan: Patient with recurrent chest tightness/pressure similar to his anginal pain. Could be related to bronchospastic airway disease although ischemic heart disease needs to be ruled out given his recent myocardial infarction and stenting. I have advised him to stop going to rehab and avoid strenuous exertion. I will schedule him for exercise myocardial perfusion imaging in near future. Treatment based on the findings of the test results. Meanwhile he is having significant bronchospastic airway disease I have taken the liberty to provide him with prednisone tapering dose and have made referral to Dr. Clayton for evaluation from pulmonary perspective. (2) Palpitations: Code(s): R00.2 - Palpitations Plan: Palpitations with skipped heartbeats. Most likely suggestive of either PACs or PVCs or short runs. Suggest a Holter monitor to further assess for the same. No therapy is being recommended at this point in time. Further treatment based on findings. Avoidance of stimulants was discussed. Stress mitigation strategies was discussed. (3) CAD (coronary artery disease): Code(s): I25.10 - Atherosclerotic heart disease of [place] coronary artery without angina pectoris Plan: CAD with NSTEMI in October status post circumflex stenting to the OM branch for thrombotic occlusion. He had etzc-ot-xwzrloex disease other segments. Will schedule a myocardial perfusion imaging as above. Continue dual antiplatelet therapy uninterrupted for 1 year. Continue high-intensity statin therapy. Target goal LDL closer to 50 mg/dL. Advised lipid panel in near future. If his stress test is negative will advise him to resume his cardiac rehab. Follow up in the clinic in 6 weeks time, sooner p.r.n.. Thank you for allowing me to partake in his care Orders: Orders NM cardiolite stress test 2 Weeks R07.89 - Other chest pain, R07.9 - Chest pain, unspecified ECG 7 day holter monitor Today R00.2 - Palpitations Lipid Panel Today I25.10 - Atherosclerotic heart disease of [place] coronary artery without angina pectoris CA stress test Today R07.89 - Other chest pain Referrals Pulmonology Referral I25.10 - Atherosclerotic heart disease of [place] coronary artery without angina pectoris Medications: New prednisone see taper instructions. Four tablets for 2 days Three tablets for 2 days Two tablets for 2 days One tablet for 2 days Half tablet for 2 days 10 mg PO DIRECTED 21 ea 0RF I25.10 - Atherosclerotic heart disease of [place] coronary artery without angina pectoris Coding Level of Care Code Est Pt Level 4 (85260) Diagnoses Chest tightness R07.89 Palpitations R00.2 CAD (coronary artery disease) I25.10
[2024-02-05 13:26] VITALS: BP 120/80; PULSE 76; BMI 26.5
== END 2024-02-05 13:50 | disposition home or self-care (01) ==
PROVIDERS: Visit Provider Internal Medicine Cardiovascular Disease
DX: R07.89 Other chest pain (principal); R00.2 Palpitations; I25.10 Atherosclerotic heart disease of native coronary artery without angina pectoris
CPT/HCPCS: 99214

== ENCOUNTER → 2024-02-05 13:17 | Outpatient (BNVA) | payer OTHER, SELFPAY | PROVIDERS: Visit Provider Internal Medicine Cardiovascular Disease | DX: R07.89 Other chest pain (principal); R00.2 Palpitations; I25.10 Atherosclerotic heart disease of native coronary artery without angina pectoris | CPT/HCPCS: 99212 ==

== ENCOUNTER 2024-02-11 15:25 | Outpatient (AMB) | payer OTHER, SELFPAY ==
--- NOTE | 2024-02-11 15:30 | A.OFFVIS_ITS ---
Intake Vital Signs 02/11/24 15:31 Height 6 ft 1 in Weight 197 lb BMI 26.0 BP 118/68 Blood Pressure Location Rt brachial Position Sitting Pulse 82 Pulse Source Pulse Oximeter Pulse Oximetry (%) 99 Oxygen Delivery Method Room Air Intake Visit Reasons: chronic asthma Telephone Solicitor Required: No Continuous Absorption Process Operator: Continuous Absorption Process Operator offered & declined Accompanied by: Self / Same As Patient Allergies No Known Allergies Allergy (Verified 02/11/24 15:36) Medication List - Last Reconciled 02/11/24 by Miranda Saha LPN aspirin 81 mg PO DAILY atorvastatin 40 mg PO BEDTIME gabapentin 300 mg PO BID loratadine 10 mg PO DAILY metformin 500 mg PO TID omeprazole 20 mg PO BID oxycodone-acetaminophen 10-325 mg 1 tab PO Q8H PRN ticagrelor 90 mg PO BID 90 days HPI chronic asthma HPI Details Stephen is a pleasant 58-year-old male, with 20 pack year history, recently quit in November, with underlying asthma, autoimmune hepatitis, autoim mune parotitis, IgG deficiency, lymphoma and NSTEMI October 2023 s/p cardiac catheterization. He reports immunodeficiency and lymphoma, no prior medical records available and no one managing conditions, previously receiving monthly infusions. He was referred by cardiology for worsening asthma control over the last two months. He was treated last week with prednisone with significant improvement in symptoms however patient continues to report wheezing, dyspnea and dry cough since completing course of prednisone. He has been using albuterol multiple times per day with good effect. He does not have a daily inhaler. He reports multiple seasonal allergies with no recent allergy testing. 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 He denies any pertinent family history. [facility] Medical History (Updated 02/11/24 @ 20:10 by Radhika Luque NP) IgG deficiency Hypertension Asthma Autoimmune hepatitis Surgical History (Updated 02/05/24 @ 13:50 by Osiel Danielle MD) Stented coronary artery S/P cardiac cath Family History Brother Stroke Social History (Updated 02/11/24 @ 15:38 by Miranda Saha LPN) Household Members: Significant Other Do you presently have visiting nurse or other home services: No Patient Tobacco Use Status: Former Tobacco user Quit Date: 10/29 Tobacco use type: Cigarette Cigarette Packs Per Day: 0.5 Cigarettes Per Day: 10.0 Years Smoked: 30 e-Cigarette/Vaping Use: Never Used Second Hand Smoke Exposure: No Substance Use Type: Unknown Review of Systems Const Denies chills, Denies excessive sweating, Denies fever(s), Denies headache(s) and Denies night sweats Eyes Denies dry eyes, Denies irritation and Denies itchy eyes ENT Reports Normal hearing present, Denies headache(s), Denies nasal congestion, Denies nasal discharge, Denies post nasal drip and Denies sore throat Card Denies chest pain, Denies chest pain at rest, Denies chest pain with activity, Denies claudication, Denies leg edema, Denies orthopnea and Denies paroxysmal nocturnal dyspnea Resp Denies chest congestion, Denies excessive phlegm production, Denies pain on inspiration, Denies pain with cough and Denies stridor Musc Denies myalgias Neuro Reports Normal hearing present and Denies headache(s) Endo Denies excessive sweating Gio/Lymph Denies lymphadenopathy Aller/Immun Denies itchy eyes and Denies seasonal rhinorrhea Physical Exam Vital Signs: Last Vital Signs Pulse 82 02/11/24 15:31 BP 118/68 02/11/24 15:31 Pulse Ox 99 02/11/24 15:31 Oxygen Delivery Method Room Air 02/11/24 15:31 BMI result Body Mass Index 26.0 Const General: cooperative, healthy appearing, comfortable, no acute distress, well developed and alert Orientation/consciousness: patient oriented x3 Limitations: no limitations HEENT Head: Yes normal to inspection, Yes normocephalic and Yes atraumatic Ears: hearing grossly normal bilaterally and external ears normal Eyes General: appearance normal, both eyes and all related structures Eyelids: Yes eyelids normal Sclerae: sclerae normal EOM: EOMs intact bilaterally Neck Neck: Yes normal visual inspection and Yes no lymphadenopathy Lymphatic: no lymphadenopathy noted Chest Chest palpation & inspection: normal inspection of the chest Resp Other: faint expiratory wheezes throughout, moderately improved with duoneb Effort & Inspection: normal respiratory effort, able to speak in complete sentences, no audible wheezes, no cough, no stridor, not tachypneic, no tripod positioning and no use of accessory muscles Cardio Jugular venous distension: no JVD Rate: regular rate Rhythm: regular rhythm Skin Other: warm, dry General skin exam: no rashes or lesions noted Neuro General: patient oriented x3 Cranial nerves: Yes Normal hearing present Cognition (Neuro): normal cognition Gait exam (Neuro): Normal gait present Extrem General: Yes normal to inspection, Yes capillary refill normal, Yes no clubbing, cyanosis or edema and Yes no pedal edema Psych Appearance: grossly normal and well kempt Speech and movement: Normal speech and movement present and Clear speech present Affect: normal affect Attitude: cooperative Thought process: Normal thought process present Thought content: Normal thought content present Insight: Good insight present (Psych) Judgement: Good judgement present (Psych) Assessment & Plan Assessment & Plan (1) Asthma: Code(s): J45.909 - Unspecified asthma, uncomplicated (2) IgG deficiency: Code(s): D80.3 - Selective deficiency of immunoglobulin G [IgG] subclasses (3) Nicotine dependence, cigarettes, uncomplicated: Code(s): F17.210 - Nicotine dependence, cigarettes, uncomplicated (4) Lymphoma: Comment: per patient, requested records Code(s): C85.90 - Non-Hodgkin lymphoma, unspecified, unspecified site (5) Asbestos exposure: Code(s): Z77.090 - Contact with and (suspected) exposure to asbestos Plan Stephen's symptoms are likely related to underlying asthma with an allergic component. Will send for PFT and RAST. Will empircally start on symbicort and send in prednisone, as patient with wheezing on exam. Will also send a nebulizer for home use. Patient with 20 pack year smoking history and worsening symptoms of cough with dyspnea, as well as asbestos exposure. Will send for chest CT. Patient noted immune deficiency, will send for labs to assess. Had patient sign record release for [facility] to obtain oncology records. Will enter referral to oncology for further evaluation. All questions were answered and patient is in agreement of plan. Will follow up to review results and response to inhaler. Orders: Orders CT chest wo IV con Today C85.90 - Non-Hodgkin lymphoma, unspecified, unspecified site, F17.210 - Nicotine dependence, cigarettes, uncomplicated Complete Blood Count Auto Diff Today J45.909 - Unspecified asthma, uncomplicated Immunoglobulin E Today Z91.09 - Other allergy status, other than to drugs and biological substances Immunoglobulins,IgG IgA IgM Today D80.3 - Selective deficiency of immunoglobulin G [IgG] subclasses Immunoglobulin G Subclasses Today D80.3 - Selective deficiency of immunoglobulin G [IgG] subclasses PFT pulmonary function test Today J45.909 - Unspecified asthma, uncomplicated Resp Allergy Profile Region I Today Z91.09 - Other allergy status, other than to drugs and biological substances Referrals Hematology & Oncology Referral C85.90 - Non-Hodgkin lymphoma, unspecified, unspecified site Medications: New prednisone 40 mg x 5 days then 20 mg x 5 days 40 mg (2 x 20 mg) PO DAILY 10 tabs 0RF albuterol sulfate 2.5 mg (3 mL) inhalation Q4-6H PRN 90 mL 3RF shortness of breath or wheezing budesonide-formoterol 80-4.5 mcg/actuation (Symbicort) 2 puffs inhalation Q12H 10.2 grams 6RF Coding Level of Care Code New Pt Level 4 (66210) Diagnoses Asthma J45.909 IgG deficiency D80.3 Nicotine dependence, cigarettes, uncomplicated F17.210 Lymphoma C85.90 Asbestos exposure Z77.090
[2024-02-11 15:31] VITALS: BP 118/68; PULSE 82; O2SAT 99; BMI 26.0
== END 2024-02-11 16:27 | disposition home or self-care (01) ==
PROVIDERS: Visit Provider Nurse Practitioner Family
DX: J45.909 Unspecified asthma, uncomplicated (principal); D80.3 Selective deficiency of immunoglobulin G [IgG] subclasses; F17.210 Nicotine dependence, cigarettes, uncomplicated; C85.90 Non-Hodgkin lymphoma, unspecified, unspecified site; Z77.090 Contact with and (suspected) exposure to asbestos
CPT/HCPCS: 99204

== ENCOUNTER → 2024-02-11 15:25 | Outpatient (BNVA) | payer OTHER, SELFPAY | PROVIDERS: Visit Provider Nurse Practitioner Family | DX: J45.909 Unspecified asthma, uncomplicated (principal); D80.3 Selective deficiency of immunoglobulin G [IgG] subclasses; F17.210 Nicotine dependence, cigarettes, uncomplicated; C85.90 Non-Hodgkin lymphoma, unspecified, unspecified site; Z77.090 Contact with and (suspected) exposure to asbestos; Z87.891 Personal history of nicotine dependence | CPT/HCPCS: 99202 ==

== ENCOUNTER 2024-02-24 09:48 | Outpatient (REF) | payer OTHER, SELFPAY ==
[2024-02-24 10:02] LABS: MANUAL DIFF FLAG NO
[2024-02-24 10:37] LABS: Basophils Percent Auto 0.5 % (0-2); Eosinophils Absolute Auto 0.4 X10*3/uL (0.0-0.4); Eosinophils Percent Auto 5.3 % (0-4); Hematocrit 42.4 % (42.0-52.0); Hemoglobin 13.6 g/dl (14.0-18.0); Imm Gran Abs Auto 0.02 X10*3/uL (0.00-0.03); Imm Gran Pct Auto 0.3 % (0.0-0.4); Lymphocytes Absolute Auto 1.8 X10*3/uL (1.2-4.9); Mean Corpuscular HGB Conc 32.1 g/dl (31.0-36.0); Mean Corpuscular Hemoglobin 29.4 pg (27.0-33.0); Mean Corpuscular Volume 91.6 fL (80.0-98.0); Mean Platelet Volume 9.6 fL (9.4-12.4); Monocytes Absolute Auto 0.6 X10*3/uL (0.1-1.2); Monocytes Percent Auto 8.1 % (2-11); Neutrophils Absolute Auto 4.5 x10*3/uL (2.0-8.3); Neutrophils Percent Auto 61.8 % (45-73); Platelet Count 152 X10*3/uL (160-400); Red Blood Count 4.63 X10*6/uL (4.60-5.80); Red Cell Distribution Width 13.9 % (11.0-16.0); White Blood Count 7.3 X10*3/uL (4.8-10.8)
[2024-02-25 14:38] LABS: IgA 281 mg/dL (47-310); IgG 947 mg/dL (600-1640); IgM 67 mg/dL (50-300)
[2024-02-25 16:27] LABS: Immunoglobulin G Subclass 1 366 mg/dL (382-929); Immunoglobulin G Subclass 2 358 mg/dL (241-700); Immunoglobulin G Subclass 3 54 mg/dL (22-178); Immunoglobulin G Subclass 4 130.9 mg/dL (4-86); Immunoglobulin G Total 895 mg/dL (600-1640)
[2024-02-25 23:08] LABS: Class Alternaria alternata 0; Class Aspergillus fumigatus 0; Class Bermuda Grass 0/1; Class Birch 5; Class Cat Dander 2; Class Cladosporium herbarum 0; Class Cockroach 0/1; Class Common Ragweed 2; Class Cottonwood 0/1; Class Derm. pterony 0; Class Dermatophagoides farinae 0; Class Dog Dander 0; Class Elm 3; Class Maple Box Elder 2; Class Mountain Cedar 0/1; Class Mouse Urine Protein 0; Class Mugwort 2; Class Oak 5; Class Penicillium crysogenum 0; Class Rough Pigweed 1; Class Sheep Sorrel 0; Class Sycamore 2; Class Timothy Grass 0; Class Walnut Tree 2; Class White Ash 1; Class White Mulberry 0; D001 IgE D pteronyssinus <0.10 kU/L; D002 - IgE D farinae <0.10 kU/L; E005 - IgE Dog Dander <0.10 kU/L; E072-IgE Mouse Urine <0.10 kU/L; G006 - IgE Timothy Grass <0.10 kU/L; I006-IgE Cockroach, German 0.16 kU/L; Immunoglobulin E 1123 kU/L (<OR=114); M001 IgE Penicillium chrysogen <0.10 kU/L; M002 - IgE Cladosporium herbar <0.10 kU/L; M003 - IgE Aspergillus fumigat <0.10 kU/L; M006 - IgE Alternaria alternat <0.10 kU/L; T001 IgE Maple/Box Elder 1.55 kU/L; T008 IgE Elm, American 4.94 kU/L; T010 - IgE Walnut 1.15 kU/L; T011 - IgE Maple Leaf Sycamore 0.94 kU/L; T014 - IgE Cottonwood 0.15 kU/L; T070 - IgE White Mulberry <0.10 kU/L; W001 - IgE Ragweed, Short 2.95 kU/L; W014 IgE Pigweed, Common 0.41 kU/L; W018 IgE Sheep Sorrel <0.10 kU/L
== END 2024-02-24 09:49 | disposition home or self-care (01) ==
LOC: HO.LAB 09:48
PROVIDERS: Visit Provider Nurse Practitioner Family
DX: J45.909 Unspecified asthma, uncomplicated (principal); D80.3 Selective deficiency of immunoglobulin G [IgG] subclasses; Z91.09 Other allergy status, other than to drugs and biological substances
CPT/HCPCS: 36415; 82784; 82785; 85025; 86003

== ENCOUNTER → 2024-03-05 08:39 | Outpatient (REF) | payer OTHER, SELFPAY ==
--- NOTE | ~2024-03-05 | NM_ITS ---
Exercise Myocardial perfusion study Indication: Chest pain Technique: The patient was brought in for an exercise perfusion study on 03/05/2024. Patient performed exercise as per Paramjit protocol and was injected 30 mCi of sestamibi was given intravenously one target HR was achieved. Images were obtained using the SPECT gamma camera interlaced with the gating device. Images were obtained in supine position. Resting perfusion study was performed on 03/10/2024. Patient was administered 30 mCi of sestamibi intravenously at rest. Images were then obtained in supine position. Images obtained with and without CT attenuation. Total DLP 82 mGy-cm Images were processed with the software and compared side to side in short axis, horizontal long axis and vertical long axis views. Findings: The stress perfusion study showed non attenuated images show large area of moderately reduced uptake in the lateral, mildly reduced uptake in the inferior and inferolateral wall of the LV myocardium. Attenuated corrected images show large area of moderately reduced uptake in the lateral wall of the LV myocardium.. The gated study shows reduced LV systolic function with calculated LVEF of 43%. LV cavity is mildly dilated in size. The gated study shows reduced wall thickening and contraction of lateral segments. There is no transient ischemic dilation. Resting study shows no change in perfusion pattern compared to stress perfusion study. Gating at rest reveals lateral wall motion abnormality with ejection fraction at 41%. The findings are consistent with no clear reversible defect, fixed lateral wall defect suggestive of nontransmural infarct. Severe ischemia cannot be entirely ruled out.. NM/NM cardiolite stress test Impression: 1. Large area of fixed lateral defect suggestive of either nontransmural infarct or severe ischemia. 2. Gated LVEF is 43% 3. Transient ischemic dilatation not present Stress EKG is negative for ischemia
--- NOTE | 2024-03-05 08:42 | CA_ITS ---
Acquisition Time: 2024-03-05 08:52:58 Total Exercise Time: 00:07:30 Test Indications: CP, SOB Medications: SEE H Protocol: ALEXANDRE Max HR: 141 BPM 88% of Pred: 159 BPM Max BP: 158/074 mmHG Max Work Load: 9.3 METS Exercise stress test exercise 7 min 30 sec of Alexandre protocol achieving 88% MPHR, with mild SOB, without chest discomfort, with normotensive response to exericse, with isolated PVCs, without EKG changes. Nuclear images pending. Test reviewed with Dr. Danielle. Referred By: Osiel Danielle Overread By: Heaven Valdez
--- NOTE | 2024-03-05 08:42 | HM_ITS ---
Conclusion: 1. Patient was monitored for total period of 8 days 2. Baseline was normal sinus rhythm with average heart rate of 81 beats per minute 3. Frequent PVCs noted mostly isolated with total burden of 3.9% 4. No significant pauses noted 5. Patient marked the counter 1 time with no reported symptoms correlating with sinus rhythm with PVC MTDD
== END ==
LOC: HO.CARD 08:39
PROVIDERS: Visit Provider Internal Medicine Cardiovascular Disease
DX: R07.89 Other chest pain (principal); R00.2 Palpitations
CPT/HCPCS: 78452; 93017; 93242; A9500

== ENCOUNTER → 2024-03-05 08:42 | Outpatient (BNV) | payer OTHER, SELFPAY | PROVIDERS: Visit Provider Nurse Practitioner | DX: I49.3 Ventricular premature depolarization (principal) | CPT/HCPCS: 78452; 93016; 93018; 93248 ==

== ENCOUNTER 2024-03-24 09:32 | Outpatient (REF) | payer OTHER, SELFPAY ==
[2024-03-24 11:10] LABS: Cholesterol 118 mg/dL (<200); HDL Cholesterol 41 mg/dL (>40); LDL Cholesterol Calculated 67 mg/dL (<100); Triglycerides 52 mg/dL (<150)
[2024-03-26] LABS: Immunoglobulin E 1138 kU/L (<OR=114)
== END 2024-03-24 09:33 | disposition home or self-care (01) ==
LOC: HO.LAB 09:32
PROVIDERS: Absent Provider Nurse Practitioner Family; Visit Provider Internal Medicine Cardiovascular Disease
DX: I25.10 Atherosclerotic heart disease of native coronary artery without angina pectoris (principal); Z91.09 Other allergy status, other than to drugs and biological substances
CPT/HCPCS: 36415; 80061; 82785

== ENCOUNTER 2024-03-25 14:01 | Outpatient (AMB) | payer OTHER, SELFPAY ==
[2024-03-25 14:10] VITALS: BP 122/72; PULSE 72; BMI 26.3
--- NOTE | 2024-03-25 14:10 | A.OFFVIS_ITS ---
Vital Signs 03/25/24 14:10 Height 6 ft 1 in Weight 199 lb 11.821 oz BMI 26.3 BP 122/72 Blood Pressure Location Lt brachial Position Sitting Pulse 72 Pulse Source Pulse Oximeter Intake Visit Reasons: follow up stress, labs Locomotive Engineer Required: No Allergies No Known Allergies Allergy (Verified 03/25/24 14:13) Medication List - Last Reconciled 03/25/24 by Esmer Houston, SHEARING SUPERVISOR-C albuterol sulfate 2.5 mg (3 mL) inhalation Q4-6H PRN aspirin 81 mg PO DAILY atorvastatin 40 mg PO BEDTIME budesonide-formoterol 80-4.5 mcg/actuation (Symbicort) 2 puffs inhalation Q12H gabapentin 300 mg PO BID loratadine 10 mg PO DAILY metformin 500 mg PO TID metoprolol succinate ER (Toprol XL) 25 mg PO DAILY omeprazole 20 mg PO BID oxycodone-acetaminophen 10-325 mg 1 tab PO Q8H PRN prednisone 40 mg (2 x 20 mg) PO DAILY ticagrelor 90 mg PO BID 90 days HPI HPI follow up stress, labs: Details: Jaguar is a 59-year-old male with past medical history of autoimmune hepatitis, autoimmune parotitis, IgG deficiency, lymphoma history who recently moved to this area from [place] and presented to [facility] on 10/28/23 with chest discomfort. He ruled in for NSTEMI. He was transferred to [facility] where he underwent cardiac catheterization and received RADHA to the OM 1. On last visit he reported recurrent chest discomfort, milder then time of NSTEMI. He did undergo a nuclear stress test and now presents for follow-up. Today he reports that does have random periodic pressure below his left breast that can last several minutes. He does say this pressure is similar to the type of feeling he had at the time of his [place] however less. He also gets small hits to his chest that are described as less than previously reported. No shortness of breath, palpitations, presyncope, syncope, PND, orthopnea or edema. He is taking all meds as directed. No bleeding issues reported. [facility] Medical History (Updated 03/25/24 @ 16:31 by Esmer Houston, TOMMY-C) IgG deficiency Hypertension Asthma Autoimmune hepatitis Surgical History (Updated 03/25/24 @ 16:31 by Esmer Houston NP-C) Stented coronary artery S/P cardiac cath Family History Brother Stroke Social History Household Members: Significant Other Do you presently have visiting nurse or other home services: No Patient Tobacco Use Status: Former Tobacco user Quit Date: 10/29 Tobacco use type: Cigarette Cigarette Packs Per Day: 0.5 Cigarettes Per Day: 10.0 Years Smoked: 30 e-Cigarette/Vaping Use: Never Used Second Hand Smoke Exposure: No Substance Use Type: Unknown Review of Systems Const All systems reviewed & are unremarkable except as noted in HPI and below ENT Denies dizziness Card Reports chest pain, Denies chest pain at rest, Denies chest pain with activity, Denies rapid heart rate, Denies pedal edema, Denies edema, Denies leg edema, Denies lightheadedness, Denies palpitations, Denies dyspnea, Denies dyspnea on exertion and Denies orthopnea Resp Denies cough, Denies dyspnea and Denies dyspnea on exertion GI Denies hematochezia and Denies change in stool character Musc Denies abnormal gait, Denies limited range of motion, Denies muscle cramps, Denies muscle weakness, Denies numbness, Denies radiating pain into limb, Denies stiffness and Denies tingling Neuro Denies abnormal gait, Denies dizziness, Denies numbness and Denies tingling Endo Denies palpitations Physical Exam Vital Signs: Last Vital Signs Pulse 72 03/25/24 14:10 BP 122/72 03/25/24 14:10 BMI result Body Mass Index 26.3 Const General: cooperative, healthy appearing, comfortable and no acute distress Orientation/consciousness: patient oriented x3 Neck Neck: Yes normal visual inspection Resp Effort & Inspection: normal respiratory effort Auscultation: clear to auscultation bilaterally, no crackles, no rales, no rhonchi and no wheezes Cardio Jugular venous distension: no JVD Rate: regular rate Rhythm: regular rhythm Heart sounds: S1 normal heart sound present, S2 normal heart sound present, no murmurs and no rubs Skin General skin exam: no rashes or lesions noted Neuro General: patient oriented x3 Extrem General: Yes normal to inspection and No no pedal edema Psych Appearance: grossly normal Mental Status: mental status grossly normal Speech and movement: Normal speech and movement present Assessment & Plan Assessment & Plan (1) Chest tightness: Code(s): R07.89 - Other chest pain Category: Medical Plan: Reports of pressure in his left chest region, random occurrence, similar feeling to prior [place] however less than severity. Not brought on by exertion, currently occurring randomly. He did have a nuclear stress test on 03/10/2024 showing a large area of fixed lateral defect suggestive of either a nontransmural infarct or severe ischemia. He is known to have CAD with NSTEMI and OM1 stent placement 10/30/2023. He has been on dual antiplatelet therapy, statin and beta-garrison. Will add 2nd antianginal, isosorbide 30 mg daily. Will arrange for cardiac catheterization to evaluate for stent patency and obstructive disease. Catheterization procedure and risks reviewed with patient. He is agreeable to proceed. Will order preprocedure labs. Cardiology follow-up 2 weeks post catheterization. Emergency care if needed for symptoms. Instructed on light physical activity. (2) Non-ST elevation [place] (NSTEMI): Code(s): I21.4 - Non-ST elevation (NSTEMI) myocardial infarction Category: Medical Plan: Presented to [facility] on 10/28/2023 with chest discomfort. He ruled in for ACS with troponins up to 16,000. Echocardiogram showed EF 50-55%, grade 1 diastolic dysfunction, regional wall motion abnormality in the left circumflex territory, ascending aorta 4 cm. He was started on appropriate med management and transferred to [facility] where he underwent cardiac catheterization on 10/30/2023 showing OM1 proximal 100% stenosis with thrombus. He underwent thrombectomy and RADHA placement. Now with intermittent chest pre ssure and abnormal nuclear stress test as above. Cardiac catheterization being planned. Continue aspirin indefinitely. Continue Brilinta uninterrupted for at least 1 year. Continue atorvastatin with ideal LDL goal less than 70. He continues to smoke cigarettes. Reviewed smoking cessation. Signs and symptoms of angina discussed. (3) S/P cardiac cath: Comment: Cardiac catheterization done 10/30/2023 showing lad proximal 50% stenosis, 1st diagonal 65% stenosis, left circumflex OM1 proximal 100% stenosis with thrombus, thrombectomy and RADHA placed. OM to 40% stenosis. Code(s): Z98.890 - Other specified postprocedural states Category: Surgical Plan: As above (4) Hyperlipidemia: Code(s): E78.5 - Hyperlipidemia, unspecified Category: Medical Plan: [place] LDL goal less than 70. Continue atorvastatin. Plan for fasting lipid profile around time of next visit. (5) Hypertension: Code(s): I10 - Essential (primary) hypertension Category: Medical Plan: Blood pressure well controlled at this time. Continue current med management. (6) Stented coronary artery: Code(s): Z95.5 - Presence of coronary angioplasty implant and graft Category: Surgical Plan: As above (7) Palpitations: Code(s): R00.2 - Palpitations Category: Medical Plan: Holter monitor done on 03/05/2024 for 8 days shows sinus rhythm with average heart rate 81, PVCs 3.9% of time. He does report hits to his chest which are likely extrasystoles, PVCs. Will have him continue on metoprolol. (8) Abnormal nuclear stress test: Code(s): R94.39 - Abnormal result of other cardiovascular function study Category: Medical Plan: As above Plan Time spent on chart review, documentation, interview and assessment Orders: Orders Cardiac Cath LT w PCI 03/25/24 R07.89 - Other chest pain, R94.39 - Abnormal result of other cardiovascular function study, Z95.5 - Presence of coronary angioplasty implant and graft, Z98.890 - Other specified postprocedural states Complete Blood Count Auto Diff 03/25/24 R94.39 - Abnormal result of other cardiovascular function study Prothrombin Time INR 03/25/24 R94.39 - Abnormal result of other cardiovascular function study Basic Metabolic Panel 03/25/24 R94.39 - Abnormal result of other cardiovascular function study Medications: New isosorbide mononitrate ER 30 mg PO DAILY 30 tabs 2RF Coding Level of Care Code Est Pt Level 4 (83045) Diagnoses Chest tightness R07.89 Non-ST elevation [place] (NSTEMI) I21.4 S/P cardiac cath Z98.890 Hyperlipidemia E78.5 Hypertension I10 Stented coronary artery Z95.5 Palpitations R00.2 Abnormal nuclear stress test R94.39 Time Spent (min) 30
== END 2024-03-25 15:21 | disposition home or self-care (01) ==
LOC: HO.HCS 14:02
PROVIDERS: Visit Provider Nurse Practitioner Family
DX: R07.89 Other chest pain (principal); I21.4 Non-ST elevation (NSTEMI) myocardial infarction; Z98.890 Other specified postprocedural states; E78.5 Hyperlipidemia, unspecified; I10 Essential (primary) hypertension; Z95.5 Presence of coronary angioplasty implant and graft; R00.2 Palpitations; R94.39 Abnormal result of other cardiovascular function study
CPT/HCPCS: 99214

== ENCOUNTER → 2024-03-25 14:01 | Outpatient (BNVA) | payer OTHER, SELFPAY | PROVIDERS: Visit Provider Nurse Practitioner Family | DX: R07.89 Other chest pain (principal); R94.39 Abnormal result of other cardiovascular function study; I10 Essential (primary) hypertension; E78.5 Hyperlipidemia, unspecified; R00.2 Palpitations; I25.2 Old myocardial infarction; Z98.890 Other specified postprocedural states | CPT/HCPCS: 99212 ==

== ENCOUNTER 2024-03-26 07:30 | Outpatient (REF) | payer OTHER, SELFPAY ==
[2024-03-26 10:45] VITALS: PULSE 84; RESP 16; O2SAT 98
--- NOTE | 2024-03-26 16:24 | PFT_ITS ---
Indication: Asthma Spirometry [FEV1 to FVC 69%; FEV1 2.52 L; FVC 3.68 L. there was a significant response to bronchodilators noted. Maximum voluntary ventilation 65% predicted] Lung Volumes [Total lung capacity 76% predicted; residual volume 114% predicted; expiratory reserve volume 37% predicted] Diffusion Capacity [Different capacity DLCO 64% predicted] Comparisons [None] Interpretation [There is a obstructive ventilatory defect consistent with moderate COPD. There has a significant response to bronchodilators noted. Patient also has a [id number] decrease in the maximum voluntary ventilation secondary to likely deconditioning. The appears to be also a restrictive ventilatory defect consistent with mild restrictive lung disease. In part due to an elevated BMI although underlying parenchymal lung conditions can not be ruled out. The patient does have a mild diffusion impairment. Clinical correlation warranted.] MTDD
== END 2024-03-26 07:31 | disposition home or self-care (01) ==
LOC: HO.RESP 07:30
PROVIDERS: Visit Provider Nurse Practitioner Family
DX: J45.909 Unspecified asthma, uncomplicated (principal)
CPT/HCPCS: 94010; 94640; 94727; 94729

== ENCOUNTER → 2024-03-26 16:24 | Outpatient (BNV) | payer OTHER, SELFPAY | PROVIDERS: Visit Provider Hospitalist | DX: J45.909 Unspecified asthma, uncomplicated (principal) | CPT/HCPCS: 94060; 94727; 94729 ==

== ENCOUNTER 2024-04-19 08:57 | Outpatient (REF) | payer OTHER, SELFPAY ==
[2024-04-19 09:08] LABS: MANUAL DIFF FLAG NO
[2024-04-19 10:15] LABS: Basophils Absolute Auto 0.1 X10*3/uL (0.0-0.2); Basophils Percent Auto 1.1 % (0-2); Eosinophils Absolute Auto 0.6 X10*3/uL (0.0-0.4); Eosinophils Percent Auto 8.4 % (0-4); Hematocrit 43.5 % (42.0-52.0); Hemoglobin 14.4 g/dl (14.0-18.0); INTERNATIONAL NORM RATIO 0.9 (0.9-1.1); Imm Gran Abs Auto 0.02 X10*3/uL (0.00-0.03); Imm Gran Pct Auto 0.3 % (0.0-0.4); Lymphocytes Absolute Auto 1.6 X10*3/uL (1.2-4.9); Lymphocytes Percent Auto 23.3 % (20-40); Mean Corpuscular HGB Conc 33.1 g/dl (31.0-36.0); Mean Corpuscular Hemoglobin 29.8 pg (27.0-33.0); Mean Corpuscular Volume 89.9 fL (80.0-98.0); Mean Platelet Volume 9.3 fL (9.4-12.4); Monocytes Absolute Auto 0.6 X10*3/uL (0.1-1.2); Neutrophils Absolute Auto 4.1 x10*3/uL (2.0-8.3); Neutrophils Percent Auto 58.9 % (45-73); Platelet Count 180 X10*3/uL (160-400); Prothrombin Time 11.4 SEC (11.1-13.3); Red Blood Count 4.84 X10*6/uL (4.60-5.80); Red Cell Distribution Width 13.4 % (11.0-16.0)
[2024-04-19 10:42] LABS: Anion Gap 14 (12-20); Blood Urea Nitrogen 12 mg/dL (9-16); Calcium 9.1 mg/dL (8.4-10.2); Carbon Dioxide 25 mmol/L (22-29); Chloride 107 mmol/L (96-108); Estimated Glomerular Filt Rate > 60; Glucose Random 123 mg/dL (60-115); Sodium 142 mmol/L (135-145)
== END 2024-04-19 08:58 | disposition home or self-care (01) ==
LOC: HO.LAB 08:57
PROVIDERS: Visit Provider Nurse Practitioner Family
DX: R94.39 Abnormal result of other cardiovascular function study (principal)
CPT/HCPCS: 36415; 80048; 85025; 85610

== ENCOUNTER → 2024-04-22 23:59 | Outpatient (BNV) | payer OTHER, SELFPAY | PROVIDERS: Visit Provider Internal Medicine Cardiovascular Disease | DX: I25.118 Atherosclerotic heart disease of native coronary artery with other forms of angina pectoris (principal) | CPT/HCPCS: 92928; 92978; 93458; 93571; 99152 ==